=== PATIENT | male | born 1940 | race Caucasian/White ===

== ENCOUNTER 2017-06-17 19:12 | Inpatient (IN) | payer OTHER, BC ==
--- NOTE | 2017-06-17 19:22 | PDOC ---
History of Present Illness <Sofía Galindo - Last Filed: 06/17/17 23:26> <Jaxon Carroll - Last Filed: 06/18/17 02:38> - General Chief Complaint: Chest Pain Stated Complaint: CHEST PAIN Time Seen by Provider: 06/17/17 19:22 - History of Present Illness Initial Comments: 06/17/17 19:47 The patient is a 76 year old male with a significant PMH of colon cancer, diabetes, kidney failure, cardiomegaly, s/p 2 stents placed who presents to the emergency department with multiple episodes of nonbloody, nonbilious vomit this morning and chest pain localized in the sterum, nonradiating this evening. The patient reports he took pepto-bismol today. The patient has a fever of 103 here in the ER. The patient states he took two Tylenol PMs and a benadryl two hours before arrival. The patient denies shortness of breath, headache and dizziness. Denies chills, diarrhea and constipation. Denies dysuria, frequency, urgency and hematuria. Allergies: sulfa Past surgical history: Colectomy Social history: No reported alcohol,d rug or cigarette use. PCP: Dr. Ignacio in [place] (Sofía Galindo) Past History <Sofía Galindo - Last Filed: 06/17/17 23:26> - Suicide/Smoking/Psychosocial Hx Smoking History: Never smoked Have you smoked in the past 12 months: No Information on smoking cessation initiated: No Hx Alcohol Use: No Drug/Substance Use Hx: No <Jaxon Carroll - Last Filed: 06/18/17 02:38> - Past Medical History Allergies/Adverse Reactions: Allergies Allergy/AdvReac Type Severity Reaction Status Date / Time Sulfa (Sulfonamide Allergy Verified 06/17/17 19:20 Antibiotics) Review of Systems - Review of Systems Able to Perform ROS?: Yes <Sofía Galindo - Last Filed: 06/17/17 23:26> <Jaxon Carroll - Last Filed: 06/18/17 02:38> - Review of Systems Comments:: 06/17/17 19:46 CONSTITUTIONAL: (+) Fever. No chills, no fatigue EYES: No visual changes ENT: No ear pain, no sore throat CARDIOVASCULAR: No chest pain, no palpitations RESPIRATORY: No cough, no SOB GI: (+) Vomiting. No abdominal pain, no constipation, no diarrhea GENITOURINARY: No dysuria, no frequency, no hematuria MUSKULOSKELETAL: No backpain, no joint pain, no myalgias SKIN: No rash NEURO: No headache (Sofía Galindo) *Physical Exam <JosieSofía - Last Filed: 06/17/17 23:26> <Jaxon Carroll - Last Filed: 06/18/17 02:38> - Vital Signs Last Vital Signs Temp Pulse Resp BP Pulse Ox 102.4 F H 117 H 18 142/73 95 06/17/17 19:17 06/17/17 19:17 06/17/17 19:17 06/17/17 19:17 06/17/17 19:17 - Physical Exam Comments: 06/17/17 20:16 CONSTITUTIONAL: (+) Lethargic but easily arousable to verbal stimuli. Well nourished; in no apparent distress. HEAD: Normocephalic; atraumatic EYES: (+) No photophobia. PERRL; EOM intact. ENMT: (+) Mucous membranes dry. (+) Tongue is coated. External appears normal; normal oropharynx. NECK: Supple; non-tender; no cervical lymphadenopathy, no bruits CARD: (+) Tachycardic. Normal S1, S2; no murmurs, rubs, or gallops. RESP: Normal chest excursion with respiration; breath sounds clear and equal bilaterally; no wheezes, rhonchi, or rales ABD: (+) Mild RUQ tenderness. Soft, non-distended; no palpable organomegaly, no palpable hernias EXT: (+) 2+ pitting edema of the bilateral LE. Normal ROM in all four extremities; non-tender to palpation; distal pulses intact SKIN: Warm, dry, no rash NEURO: (+) Follows commands, gait deferred, moving all extremities appropriately. No focal neurological deficiencies. = (Sofía Galindo) ED Treatment Course - LABORATORY CBC & Chemistry Diagram: 06/17/17 20:19 06/17/17 20:19 <Una Galindosy - Last Filed: 06/17/17 23:26> - LABORATORY CBC & Chemistry Diagram: 06/17/17 20:19 06/17/17 20:19 <Jaxon Carroll - Last Filed: 06/18/17 02:38> - ADDITIONAL ORDERS Additional order review: Laboratory Results 06/17/17 06/17/17 06/17/17 21:20 20:19 20:19 PT with INR INR PTT (Actin FS) VBG pH POC VBG pCO2 POC VBG pO2 Mixed VBG HCO3 Sodium Potassium Chloride Carbon Dioxide Anion Gap BUN Creatinine Creat Clearance w eGFR Random Glucose Lactic Acid 0.9 Calcium Total Bilirubin AST ALT Alkaline Phosphatase Troponin I 0.05 Total Protein Albumin Lipase Urine Color Ltyellow Urine Appearance Clear Urine pH 5.0 Ur Specific [place] 1.013 Urine Protein 2+ H Urine Glucose (UA) Negative Urine Ketones Trace H Urine Blood 1+ H Urine Nitrite Negative Urine Bilirubin Negative Urine Urobilinogen Negative Ur Leukocyte Esterase Negative Urine WBC (Auto) 4 Urine RBC (Auto) 4 Urine Bacteria Rare Urine Mucus Rare 06/17/17 06/17/17 06/17/17 20:19 20:19 20:01 PT with INR 12.40 H INR 1.10 PTT (Actin FS) 32.9 VBG pH 7.34 POC VBG pCO2 34.2 L POC VBG pO2 134.0 H Mixed VBG HCO3 18.0 L Sodium 151 H Potassium 3.5 Chloride 119 H Carbon Dioxide 23 Anion Gap 9 BUN 50 H Creatinine 3.0 H Creat Clearance w eGFR 20.45 Random Glucose 181 H Lactic Acid Calcium 10.0 Total Bilirubin 0.7 AST 19 ALT 20 Alkaline Phosphatase 67 Troponin I Total Protein 7.4 Albumin 3.7 Lipase Urine Color Urine Appearance Urine pH Ur Specific [place] Urine Protein Urine Glucose (UA) Urine Ketones Urine Blood Urine Nitrite Urine Bilirubin Urine Urobilinogen Ur Leukocyte Esterase Urine WBC (Auto) Urine RBC (Auto) Urine Bacteria Urine Mucus 06/17/17 19:43 PT with INR INR PTT (Actin FS) VBG pH POC VBG pCO2 POC VBG pO2 Mixed VBG HCO3 Sodium Potassium Chloride Carbon Dioxide Anion Gap BUN Creatinine Creat Clearance w eGFR Random Glucose Lactic Acid Calcium Total Bilirubin AST ALT Alkaline Phosphatase Troponin I Total Protein Albumin Lipase 179 Urine Color Urine Appearance Urine pH Ur Specific [place] Urine Protein Urine Glucose (UA) Urine Ketones Urine Blood Urine Nitrite Urine Bilirubin Urine Urobilinogen Ur Leukocyte Esterase Urine WBC (Auto) Urine RBC (Auto) Urine Bacteria Urine Mucus 06/17/17 21:09 Influenza Types A,B Antigen (JODIE) - Final Nasopharyngeal Swab - Final 06/17/17 20:19 RBC 4.45 MCV 86.5 MCHC 33.2 RDW 15.3 MPV 9.7 Neutrophils % 90.9 H Lymphocytes % 2.8 L Monocytes % 5.7 Eosinophils % 0.4 Basophils % 0.2 - RADIOLOGY Radiology Studies Ordered: Category Date Time Status ABDOMEN & PELVIS CT W/O CONTR [CT] Stat CT Scan 06/18/17 01:31 Taken CHEST X-RAY PORTABLE* [RAD] Stat Radiology 06/17/17 19:43 Taken CHEST X-RAY PORTABLE* [RAD] Stat Radiology 06/17/17 20:43 Taken ABDOMEN US -LIMITED [US] Stat Ultrasound 06/17/17 21:16 Taken - Medications Given in the ED: ED Medications Discontinued Medications Generic Name Dose Route Start Last Admin Trade Name Freq PRN Reason Stop Dose Admin Acetaminophen 1,000 mg 06/17/17 19:43 06/17/17 20:25 Ofirmev Injection - IVPB 06/17/17 19:44 1,000 mg ONCE ONE Administration Sodium Chloride 500 mls @ 500 mls/hr 06/17/17 21:02 06/17/17 21:05 Normal Saline - IV 06/17/17 22:01 500 mls/hr ASDIR STA Administration Sodium Chloride 500 mls @ 500 mls/hr 06/17/17 23:01 06/17/17 23:16 Normal Saline - IV 06/18/17 00:00 500 mls/hr ASDIR STA Administration Ceftriaxone Sodium 1 gm/ 50 mls @ 100 mls/hr 06/17/17 23:46 06/18/17 02:26 Dextrose IVPB 06/18/17 00:15 100 mls/hr ONCE ONE Administration Sodium Chloride 500 ml 06/17/17 19:42 06/17/17 20:25 Normal Saline - IV 06/17/17 19:43 500 ml ONCE STA Administration Medical Decision Making <Sofía Galindo - Last Filed: 06/17/17 23:26> <Jaxon Carroll - Last Filed: 06/18/17 02:38> - Medical Decision Making 06/17/17 23:33 Patient is a 76-year-old male with multiple comorbidities who presents to the ER with lethargy, fever, upper abdominal pain, after experiencing several episodes of nonbloody, nonbilious vomiting and loose watery stools. On initial evaluation, patient is noted to be febrile, tachycardic, lethargic without evidence of meningeal signs, with mild right upper quadrant, left lower quadrant and periumbilical tenderness to deep palpation without guarding or rebound. Patient's EKG revealed sinus tachycardia with Q waves inferiorly and within the precordium, without evidence of acute ischemia. Chest x-ray reveals cardiomegaly with a questionable left lower lobe infiltrate. CBC reveals no evidence of leukocytosis, neutrophilia is noted. CMP reveals moderate hypernatremia, as well as elevated BUN/creatinine consistent with patient's history of chronic renal insufficiency. Urinalysis reveals no evidence of pyuria. Blood and urine cultures are been obtained. Patient is noted to be influenza negative. Right upper quadrant ultrasound shows no evidence of hepatobiliary disease, renal cysts are noted. Will obtain CT of abdomen and pelvis with by mouth contrast to evaluate for possible colitis. Will continue to judiciously hydrate. Likely admission. 06/18/17 02:25 pt with no evidence of acute pathology onct abd-pelvis. lll infiltrate noted. ceftriaxone and zithromax administered. will admit. (Jaxon Carroll) *DC/Admit/Observation/Transfer <Sofía Galindo - Last Filed: 06/17/17 23:26> - Discharge Dispostion Admit: Yes <Jaxon Carroll - Last Filed: 06/18/17 02:38> Diagnosis at time of Disposition: Hypernatremia, Chronic renal insufficiency, stage IV (severe) Pneumonia Qualifiers: Pneumonia type: due to unspecified organism Laterality: left Lung location: lower lobe of lung Qualified Code(s): J18.1 - Lobar pneumonia, unspecified organism - Discharge Dispostion Condition at time of disposition: Fair Decision to Admit order Date/Time: Decision to Admit Order Category Date Time Status Decision to Admit to Hospital Routine Admission 06/18/17 02:27 Active - Attestations Scribe Attestion: 06/17/17 19:46 Documentation prepared by Sofía Galindo, acting as medical center director for Jaxon Carroll MD. (Sofía Galindo) Physician Attestion: 06/17/17 23:32 The documentation was prepared by the scribe under my direct supervision. I have reviewed the documentation which correctly represents the findings, medical decision-making and critical action taken by me. (Jaxon Carroll)
[2017-06-17] MEDS ORDERED: SODIUM CHLORIDE 0.9% 1000 ML INFUS.BAG IV STA (19:42)
[2017-06-17] MEDS ORDERED: ACETAMINOPHEN 1000 MG/100 ML VIAL (NON FORMULARY) IVPB ONE (19:43)
[2017-06-17] MEDS ORDERED: ACETAMINOPHEN INJECTION 100 ML IVPB ONE (19:49)
[2017-06-17 20:23] LABS: VENOUS PC02 34.2 mmHg (38-52); VENOUS PH 7.34 (7.32-7.42)
[2017-06-17 20:26] LABS: BASO % 0.2 % (0-2.0); EOS % 0.4 % (0-4.5); HEMATOCRIT 38.5 % (35.4-49); HEMOGLOBIN 12.8 GM/dL (11.7-16.9); LYMPH % 2.8 % (8-40); MCH 28.8 pg (25.7-33.7); MCHC 33.2 g/dl (32.0-35.9); MEAN CELL VOLUME 86.5 fl (80-96); MEAN PLT VOLUME 9.7 fl (7.5-11.1); MONO % 5.7 % (3.8-10.2); NEUT % 90.9 % (42.8-82.8); PLATELET COUNT 157 K/MM3 (134-434); RBC 4.45 M/mm3 (4.00-5.60); RDW 15.3 % (11.9-15.9); WHITE BLOOD COUNT 4.1 K/mm3 (4.0-10.0)
[2017-06-17 20:39] LABS: INR 1.1 (0.82-1.09); PROTHROMBIN TIME (PATIENT) 12.4 SEC (9.98-11.88)
[2017-06-17 20:42] LABS: ACTIVATED PTT 32.9 SECONDS (26.9-34.4)
[2017-06-17 20:59] LABS: ALBUMIN 3.7 g/dl (3.4-5.0); ALK PHOS 67 U/L (45-117); ANION GAP 9 (8-16); BILIRUBIN,TOTAL 0.7 mg/dL (0.2-1.0); BLOOD UREA NITROGEN 50 mg/dL (7-18); CHLORIDE 119 mmol/L (98-107); CO2 23 mmol/L (21-32); GLUCOSE,RANDOM 181 mg/dL (74-106); POTASSIUM 3.5 mmol/L (3.5-5.1); SGOT/AST 19 U/L (15-37); SGPT/ALT 20 U/L (12-78); SODIUM 151 mmol/L (136-145); TOT PROT 7.4 g/dl (6.4-8.2)
[2017-06-17] MEDS ORDERED: SODIUM CHLORIDE 500 ML IV STA ×2 (21:02→23:01)
[2017-06-17 21:31] LABS: URINE APPEARANCE CLEAR; URINE BILIRUBIN NEGATIVE (NEGATIVE); URINE BLOOD 1+ (NEGATIVE); URINE COLOR LTYELLOW; URINE GLUCOSE (UA) NEGATIVE (NEGATIVE); URINE KETONE TRACE (NEGATIVE); URINE LEUK ESTERASE NEGATIVE (NEGATIVE); URINE NITRITE NEGATIVE (NEGATIVE); URINE UROBILINOGEN NEGATIVE mg/dL (0.2-1.0)
[2017-06-17 21:41] LABS: URINE PROTEIN 2+ (NEGATIVE)
[2017-06-17 21:42] LABS: URINE BACTERIA RARE /hpf (NONE SEEN); URINE MUCUS RARE
[2017-06-17] MEDS ORDERED: CEFTRIAXONE 1 GM in DEXTROSE 5%-WATER - 50 ML IVPB ONE (23:46)
[2017-06-18] MEDS ORDERED: AZITHROMYCIN IVPB 500 MG in DEXTROSE 5%-WATER - 250 ML IVPB ONE (02:00)
[2017-06-18] MEDS ORDERED: AZITHROMYCIN IVPB 250 ML IVPB ONE (02:10)
[2017-06-18] MEDS ORDERED: CEFTRIAXONE 1 GM/50 ML BAG ONE (02:11)
[2017-06-18] MEDS ORDERED: SODIUM CHLORIDE 250 ML IV STA (02:27)
--- NOTE | 2017-06-18 03:05 | PN ---
Teaching Attending Note Name of Resident: Ning Burrows ATTENDING PHYSICIAN STATEMENT I saw and evaluated the patient. I reviewed the resident's note and discussed the case with the resident. I agree with the resident's findings and plan as documented. SUBJECTIVE: 76 y/o male with hx of HTN, DL, CAD s/p 2 stents, CVA x.2 CKD stage V, IDDM, colorectal cancer s/p chemo/radio therapy, Obstructive sleep apnea on CPAP, and HFrEF presented to the hospital for altered mental status that started yesterday , according to the there are here fora but then the patient stated to feel malaise and febrile 2 days ago and became altered. ROS is limited due to the patient's mental status OBJECTIVE: somnolent but arousal S1 and S2 RRR +3 pitting edema bilaterally abdomen soft non-tender tongue dark - (ate blue berries ) lungs decreased air entry to the left with ronchi ASSESSMENT AND PLAN: 76 y/o male with multiple co-morbidities Pneumonia severity index of 211 presented to the hospital for AMS found to have left lower lobe pneumonia - patient is being admitted for SIRS with sepsis 2/2 pneumonia Plan: SIRS with sepsis 2/2 pneumonia: patient has HFrEF he is hemodynamically stable Pneumonia: please obtain ID consultation - for proper antibiotic therapy - patient is CHF and requires an IV antibiotics with the least amount of NaCl to prevent the acute decompensation HF patient received 1 dose of ceftriaxone and 1 dose azithromycin will start the patient on Levofloxacin 750mg daily IVPB avoid using CPAP to prevent mucous plugs consult pulmonary consider CCM flu r/o HFrEF: obtain an echocardiogram cardiology consult hold the BP medication for this time due to sepsis CKD stage IV - 2/2 htyn and DM nephrology consult IDDM: insulin sliding scale CLINTON - avoid cpap due to pneomonia pulmonary consult
[2017-06-18] MEDS ORDERED: ACETAMINOPHEN 325 MG TABLET (FP) PO PRN (03:34)
--- NOTE | 2017-06-18 04:01 | HP ---
CHIEF COMPLAINT: SOB, AMS PCP: PCP in [place], Dr Lion HISTORY OF PRESENT ILLNESS: The pt is a 76 year old male with a PMH of colon cancer, HDL, HTN, CAD, s/p 2 stents,CKD stage 4, CL[place] on BiPap at night, CVA x 2 who presented to the hospital with AMS and increased SOB for the pas 2 days. The pt is lethargic and history was taken partially from him and his that was present at bedside. They are visiting from [place] for . She noticed that for the past 2 days he is more lethargic, started complaining of SOB and weakness. Yesterday he had several non bloody, non bilious episodes of vomiting. He was found to have fever of 102 in ED. He had chills at home and took Tylenol PM and Benadryl before coming to the hospital.The pt states that over past several weeks he was more SOB and had occasional chest pains. 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 He denies abdominal pain, palpitation, N/V, diarrhea, vomiting, cough. ER course was notable for: (1)NS (2)AZT, Ceftriaxone (3)CT abdomen, pelvis Recent Travel: yes, [place] PAST MEDICAL HISTORY: as above PAST SURGICAL HISTORY: colon cancer resection, back surgery, stents Social History: Smoking:former smoker, quit "years ago" Alcohol:no Drugs: no Family History: father and mother: DM, heart disease Allergies Sulfa (Sulfonamide Antibiotics) Allergy (Verified 06/17/17 19:20) HOME MEDICATIONS: Home Medications Medication Instructions Recorded Allopurinol [Zyloprim -] 100 mg PO DAILY 06/18/17 Aspirin [ASA -] 81 mg PO DAILY 06/18/17 Bumetanide 1 mg PO Q2D 06/18/17 Cholecalciferol (Vitamin D3) 400 unit PO DAILY 06/18/17 [Vitamin D3 -] Clopidogrel Bisulfate [Plavix] 75 mg PO HS 06/18/17 Cyanocobalamin (Vitamin B-12) 1,000 mcg PO DAILY 06/18/17 [Vitamin B-12] Hydralazine HCl 80 mg PO BID 06/18/17 Insulin Aspart [Novolog] 100 unit SQ AC 06/18/17 Insulin Detemir [Levemir Flextouch] 30 unit SQ HS 06/18/17 Isosorbide Mononitrate [Imdur -] 60 mg PO DAILY 06/18/17 Labetalol HCl 300 mg PO BID 06/18/17 Metolazone 2.5 mg PO DAILY 06/18/17 Minoxidil 5 mg PO BID 06/18/17 Rosuvastatin Calcium [Crestor] 20 mg PO DAILY 06/18/17 Ubidecarenone [Coq-10] 30 mg PO HS 06/18/17 REVIEW OF SYSTEMS CONSTITUTIONAL: Absent: fever, chills, diaphoresis, generalized weakness, malaise, loss of appetite, weight change HEENT: Absent: rhinorrhea, nasal congestion, throat pain, throat swelling, difficulty swallowing, mouth swelling, ear pain, eye pain, visual changes CARDIOVASCULAR: Absent: chest pain, syncope, palpitations, irregular heart rate, lightheadedness , peripheral edema RESPIRATORY: Absent: cough, shortness of breath, dyspnea with exertion, orthopnea, wheezing, stridor, hemoptysis GASTROINTESTINAL: Absent: abdominal pain, abdominal distension, nausea, vomiting, diarrhea, constipation, melena, hematochezia GENITOURINARY: Absent: dysuria, frequency, urgency, hesitancy, hematuria, flank pain, genital pain MUSCULOSKELETAL: Absent: myalgia, arthralgia, joint swelling, back pain, neck pain SKIN: Absent: rash, itching, pallor HEMATOLOGIC/IMMUNOLOGIC: Absent: easy bleeding, easy bruising, lymphadenopathy, frequent infections ENDOCRINE: Absent: unexplained weight gain, unexplained weight loss, heat intolerance, cold intolerance NEUROLOGIC: Absent: headache, focal weakness or paresthesias, dizziness, unsteady gait, seizure, mental status changes, bladder or bowel incontinence PSYCHIATRIC: Absent: anxiety, depression, suicidal or homicidal ideation, hallucinations. PHYSICAL EXAMINATION Vital Signs - 24 hr 06/17/17 06/18/17 06/18/17 19:17 00:00 03:10 Temperature 102.4 F H 98.4 F 98.4 F Pulse Rate 117 H Pulse Rate [ 98 H Apical] Respiratory 18 16 Rate Blood Pressure 142/73 Blood Pressure 156/72 [Right Arm] O2 Sat by Pulse 95 98 Oximetry (%) GENERAL: Awake, alert, and fully oriented, in no acute distress. HEAD: Normal with no signs of trauma. EYES: Pupils equal, round and reactive to light, extraocular movements intact, sclera anicteric, conjunctiva clear. No lid lag. EARS, NOSE, THROAT: Ears normal, nares patent, oropharynx clear without exudates. Moist mucous membranes. NECK: Normal range of motion, supple without lymphadenopathy, JVD, or masses. LUNGS: Breath sounds equal, clear to auscultation bilaterally. No wheezes, and no crackles. No accessory muscle use. HEART: Regular rate and rhythm, normal S1 and S2 without murmur, rub or gallop. ABDOMEN: Soft, nontender, not distended, normoactive bowel sounds, no guarding, no rebound, no masses. No hepatomegaly or splenomegaly. MUSCULOSKELETAL: Normal range of motion at all joints. No bony deformities or tenderness. No CVA tenderness. UPPER EXTREMITIES: 2+ pulses, warm, well-perfused. No cyanosis. No clubbing. No peripheral edema. LOWER EXTREMITIES: 2+ pulses, warm, well-perfused. No calf tenderness. No peripheral edema. NEUROLOGICAL: Cranial nerves II-XII intact. Normal speech. Normal gait. PSYCHIATRIC: Cooperative. Good eye contact. Appropriate mood and affect. SKIN: Warm, dry, normal turgor, no rashes or lesions noted, normal capillary refill. Laboratory Results - last 24 hr 06/17/17 06/17/17 06/17/17 19:43 20:01 20:19 WBC 4.1 RBC 4.45 Hgb 12.8 Hct 38.5 MCV 86.5 MCH 28.8 MCHC 33.2 RDW 15.3 Plt Count 157 MPV 9.7 Neutrophils % 90.9 H Lymphocytes % 2.8 L Monocytes % 5.7 Eosinophils % 0.4 Basophils % 0.2 PT with INR INR PTT (Actin FS) VBG pH 7.34 POC VBG pCO2 34.2 L POC VBG pO2 134.0 H Mixed VBG HCO3 18.0 L Sodium Potassium Chloride Carbon Dioxide Anion Gap BUN Creatinine Creat Clearance w eGFR Random Glucose Lactic Acid Calcium Total Bilirubin AST ALT Alkaline Phosphatase Troponin I Total Protein Albumin Lipase 179 Urine Color Urine Appearance Urine pH Ur Specific [place] Urine Protein Urine Glucose (UA) Urine Ketones Urine Blood Urine Nitrite Urine Bilirubin Urine Urobilinogen Ur Leukocyte Esterase Urine WBC (Auto) Urine RBC (Auto) Urine Bacteria Urine Mucus 06/17/17 06/17/17 06/17/17 20:19 20:19 20:19 WBC RBC Hgb Hct MCV MCH MCHC RDW Plt Count MPV Neutrophils % Lymphocytes % Monocytes % Eosinophils % Basophils % PT with INR 12.40 H INR 1.10 PTT (Actin FS) 32.9 VBG pH POC VBG pCO2 POC VBG pO2 Mixed VBG HCO3 Sodium 151 H Potassium 3.5 Chloride 119 H Carbon Dioxide 23 Anion Gap 9 BUN 50 H Creatinine 3.0 H Creat Clearance w eGFR 20.45 Random Glucose 181 H Lactic Acid 0.9 Calcium 10.0 Total Bilirubin 0.7 AST 19 ALT 20 Alkaline Phosphatase 67 Troponin I Total Protein 7.4 Albumin 3.7 Lipase Urine Color Urine Appearance Urine pH Ur Specific [place] Urine Protein Urine Glucose (UA) Urine Ketones Urine Blood Urine Nitrite Urine Bilirubin Urine Urobilinogen Ur Leukocyte Esterase Urine WBC (Auto) Urine RBC (Auto) Urine Bacteria Urine Mucus 06/17/17 06/17/17 20:19 21:20 WBC RBC Hgb Hct MCV MCH MCHC RDW Plt Count MPV Neutrophils % Lymphocytes % Monocytes % Eosinophils % Basophils % PT with INR INR PTT (Actin FS) VBG pH POC VBG pCO2 POC VBG pO2 Mixed VBG HCO3 Sodium Potassium Chloride Carbon Dioxide Anion Gap BUN Creatinine Creat Clearance w eGFR Random Glucose Lactic Acid Calcium Total Bilirubin AST ALT Alkaline Phosphatase Troponin I 0.05 Total Protein Albumin Lipase Urine Color Ltyellow Urine Appearance Clear Urine pH 5.0 Ur Specific [place] 1.013 Urine Protein 2+ H Urine Glucose (UA) Negative Urine Ketones Trace H Urine Blood 1+ H Urine Nitrite Negative Urine Bilirubin Negative Urine Urobilinogen Negative Ur Leukocyte Esterase Negative Urine WBC (Auto) 4 Urine RBC (Auto) 4 Urine Bacteria Rare Urine Mucus Rare ASSESSMENT/PLAN: The pt is a 76 year old male with a PMH of colon cancer, CAD, s/p 2 stents,CKD stage 4, [place] on BiPap at night, CVA x 2 who presented to the hospital with AMS and increased SOB for the pas 2 days. He is admitted to med surg for sepsis due to pneumonia. Sepsis due to pneumonia: -Left lower lobe infiltrate, PSI/PORT score: class 5, CURB 65 score 2 -given AZT and Ceftriaxone. Will continue with Levaquin renally dosed -no fluids due to CHF -ID consultation paced for low sodium antibiotics options -no CPAP to prevent mucus plugs -urine and blood cultures ordered, flu swab negative Heart failure with preserved EF: -cardiology consultation -hold BP home meds due to sepsis -no fluids -ECHO ordered -BNP ordered DMII: -due to HTN, diabetes -will continue with ISS -BGM ACHS CKD stage 4: -will f/u nephrology consultation -avoid nephrotoxic substances -Cr 3.0, no baseline [place]: -will f/u Pulm recommendations Hypernatremia: -low Na diet, no fluids for now F/E/N: no/no changes/low Na DVT PPX: heparin sq, Disposition: med surg Problem List - Problem (1) History of colon cancer Code(s): Z85.038 - PERSONAL HISTORY OF MALIGNANT NEOPLASM OF LARGE INTESTINE (2) Chronic renal insufficiency, stage IV (severe) Code(s): N18.4 - CHRONIC KIDNEY DISEASE, STAGE 4 (SEVERE) (3) Hypernatremia Code(s): E87.0 - HYPEROSMOLALITY AND HYPERNATREMIA (4) Pneumonia Code(s): J18.9 - PNEUMONIA, UNSPECIFIED ORGANISM Qualifiers: Pneumonia type: due to unspecified organism Laterality: left Lung location: lower lobe of lung Qualified Code(s): J18.1 - Lobar pneumonia, unspecified organism Visit type - Emergency Visit Emergency Visit: Yes ED Registration Date: 06/18/17 Care time: The patient presented to the Emergency Department on the above date and was hospitalized for further evaluation of their emergent condition. - New Patient This patient is new to me today: Yes Date on this admission: 06/18/17 - Critical Care Critical Care patient: No Hospitalist Screening - Colonoscopy Questionnaire Colonoscopy Questionnaire: Colonoscopy Questionnaire - Patient: 50 - 75 years old and never had a screening colonoscopy: No History of colon or rectal polyps, or CA: No History of IBD, Crohn's disease or UC: No History of abdominal radiation therapy as a child: No - Relative: 1 with colon or rectal CA, or polyps at age 60 or younger: No Colon or rectal CA diagnosed at age 45 or younger: No Multiple relatives with colon or rectal CA: No - Outcome: Screening Result: Negative Screen
[2017-06-18 04:46] VITALS: BMI 33.0
[2017-06-18] MEDS: INSULIN SLIDING SCALE (NOVOLOG) 1 VIAL SQ SCH ×4 (06:17→22:22)
[2017-06-18] MEDS: HEPARIN NA (PORCINE) 5,000 UNITS/ML 1ML VIAL SQ SCH ×3 (06:17→22:21)
[2017-06-18 07:43] LABS: BASO % 0.4 % (0-2.0); EOS % 0.2 % (0-4.5); HEMATOCRIT 36.3 % (35.4-49); HEMOGLOBIN 11.8 GM/dL (11.7-16.9); LYMPH % 7.9 % (8-40); MCH 28.7 pg (25.7-33.7); MCHC 32.7 g/dl (32.0-35.9); MEAN CELL VOLUME 87.8 fl (80-96); MEAN PLT VOLUME 10.1 fl (7.5-11.1); MONO % 8.3 % (3.8-10.2); NEUT % 83.2 % (42.8-82.8); PLATELET COUNT 145 K/MM3 (134-434); RBC 4.13 M/mm3 (4.00-5.60); RDW 15.3 % (11.9-15.9); WHITE BLOOD COUNT 4.7 K/mm3 (4.0-10.0)
[2017-06-18 08:19] LABS: ALBUMIN 3.3 g/dl (3.4-5.0); CALCIUM 8.7 mg/dL (8.5-10.1); CHLORIDE 118 mmol/L (98-107); SODIUM 148 mmol/L (136-145)
[2017-06-18 08:23] LABS: ALK PHOS 58 U/L (45-117); ANION GAP 6 (8-16); BILIRUBIN,TOTAL 0.7 mg/dL (0.2-1.0); BLOOD UREA NITROGEN 50 mg/dL (7-18); CHOLESTEROL 103 mg/dL (50-200); CO2 24 mmol/L (21-32); CREATININE 2.7 mg/dL (0.7-1.3); GLUCOSE,RANDOM 156 mg/dL (74-106); HDL CHOLESTEROL 34 mg/dL (40-60); LDL CHOLESTEROL (ONLY SJRH) 52 mg/dL (5-100); N-TERMINAL BNP 3675.83 pg/ml (5-450); PHOSPHOROUS 2.6 mg/dL (2.5-4.9); SGPT/ALT 19 U/L (12-78); TOT PROT 6.5 g/dl (6.4-8.2); TRIGLYCERIDES 148 mg/dL (35-160)
[2017-06-18 08:24] LABS: POTASSIUM 3.9 mmol/L (3.5-5.1)
[2017-06-18 08:25] LABS: MAGNESIUM 1.9 mg/dL (1.8-2.4); SGOT/AST 31 U/L (15-37)
--- NOTE | 2017-06-18 09:32 | PN ---
Progress Note (short form) - Note Progress Note: ID 76 year old man presents with fever and abrupt onset of diarrhea and several episodes vomiting no abd pain Microbiology 06/17/17 21:09 Nasopharyngeal Swab Influenza Types A,B Antigen (JODIE) - Final 06/17/17 21:09 Nasopharyngeal Swab - Final Selected Entries 06/17/17 06/18/17 19:17 05:05 Temperature 102.4 F H 98.9 F Pulse Rate 117 H 94 H Respiratory 18 18 Rate Blood Pressure 142/73 148/76 Laboratory Tests 06/17/17 06/18/17 06/18/17 20:19 06:45 06:45 WBC 4.7 RBC 4.13 Plt Count 145 BUN 50 H Creatinine 2.7 H Creat Clearance w eGFR 23.09 Lactic Acid 0.9 Total Bilirubin 0.7 AST 31 D Assessment Acute gastroenteritis with acute and chronic kidney disease ? enteric salmonella shig NORO [place] Plan Stool cultures NORO PCR Levaflox 250mg q 48 IVF Renal consult Problem List - Problems (1) Acute gastroenteritis Code(s): K52.9 - NONINFECTIVE GASTROENTERITIS AND COLITIS, UNSPECIFIED
[2017-06-18] MEDS ORDERED: SODIUM CHLORIDE 0.45% 1,000 ML IV SCH (09:45)
--- NOTE | 2017-06-18 09:54 | CONSULT ---
Consult - text type - Consultation Consultation Note: Renal Consult for CKD/Azotemia/Hypernatremia This is a 76 year old gentleman with PMhx of CKD stage 4 (he reports secondary to hypertension), Renal Cysts, DM, Colon Ca, IDDM who presented with complaints of N/V w/o diarrehea with fever and found to have BUN/Cr of 50/2.7. Pt reports that his baseline Cr is ~2.6. Denies any NSAID use, contrast exposure or recent Abx use. No confusion or lethargy reported. Denies any SOB. No flank pain. No hx of stones. Had N/V x 1 day (multiple times). CT of the Abd showed promiance of unilateral renal pelvis with suspected obstruction at UPJ. S/p IVF and Abx in the ED. + Diuretic use at home. PMhx: As above Allergies: Sulfa Family Hx: NC Social Hx: No T/A/D ROs: as per HPI, all other pertinent ros negative Home Medications Medication Instructions Recorded Allopurinol [Zyloprim -] 100 mg PO DAILY 06/18/17 Aspirin [ASA -] 81 mg PO DAILY 06/18/17 Bumetanide 1 mg PO Q2D 06/18/17 Cholecalciferol (Vitamin D3) 400 unit PO DAILY 06/18/17 [Vitamin D3 -] Clopidogrel Bisulfate [Plavix] 75 mg PO HS 06/18/17 Cyanocobalamin (Vitamin B-12) 1,000 mcg PO DAILY 06/18/17 [Vitamin B-12] Hydralazine HCl 80 mg PO BID 06/18/17 Insulin Aspart [Novolog] 100 unit SQ AC 06/18/17 Insulin Detemir [Levemir Flextouch] 30 unit SQ HS 06/18/17 Isosorbide Mononitrate [Imdur -] 60 mg PO DAILY 06/18/17 Labetalol HCl 300 mg PO BID 06/18/17 Metolazone 2.5 mg PO DAILY 06/18/17 Minoxidil 5 mg PO BID 06/18/17 Rosuvastatin Calcium [Crestor] 20 mg PO DAILY 06/18/17 Ubidecarenone [Coq-10] 30 mg PO HS 06/18/17 Vital Signs Temperature 98.9 F 06/18/17 05:05 Pulse Rate 94 H 06/18/17 05:05 Respiratory Rate 18 03/18/18 05:05 Blood Pressure 148/76 06/18/17 05:05 O2 Sat by Pulse Oximetry (%) 98 06/18/17 03:10 Intake & Output 06/15/17 06/16/17 06/17/17 06/18/17 23:59 23:59 23:59 23:59 Weight 107.048 kg 102.965 kg NAD on NC O2 Dry MM, No JVD, Neck supple RRR, no M/R CTA, no rales or wheeze soft, mild distension, obese, non-tender Abd NO Le edema no bladder distension NO focal neurological defects CBC, BMP 06/18/17 06:45 06/18/17 06:45 Laboratory Tests 06/18/17 06/18/17 06:45 06:45 Hemoglobin A1c % 7.5 H Calcium 8.7 Phosphorus 2.6 Magnesium 1.9 Current Medications Acetaminophen (Tylenol -) 650 mg PO Q6H PRN PRN Reason: FEVER Heparin Sodium (Porcine) (Heparin -) 5,000 unit SQ TID [facility] Last Admin: 06/18/17 06:17 Dose: 5,000 unit Levofloxacin (Levaquin 500 Mg Premixed Ivpb -) 500 mg in 100 mls @ 100 mls/hr IVPB ONCE ONE Stop: 06/18/17 10:59 Levofloxacin (Levaquin 250 Mg Premixed Ivpb -) 250 mg in 50 mls @ 50 mls/hr IVPB DAILY [facility] Sodium Chloride (1/2 Normal Saline) 1,000 mls @ 75 mls/hr IV ASDIR [facility] Stop: 06/19/17 09:44 Insulin Aspart (Novolog Vial Sliding Scale -) 1 vial SQ ACHS VIVI PRN Reason: Protocol Last Admin: 06/18/17 06:17 Dose: 2 units 76 year old gentleman with PMhx of CKD stage 4 (he reports secondary to hypertension), Renal Cysts, DM, Colon Ca, IDDM who presented with complaints of N/V w/o diarrehea with fever and found to have BUN/Cr of 50/2.7. 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
--- NOTE | 2017-06-18 10:32 | PN ---
Teaching Attending Note Name of Resident: Robbin Cantu SUBJECTIVE: patient seen and examined, states had nausea, with vomiting and diarrhea with fevers yesterday, that brought him to the ED. Denies any chest pain, palpitations, dyspnea, cough, abdominal or urinary symptoms currently. OBJECTIVE: Vital Signs Period Temp Pulse Resp BP Sys/[place] Pulse Ox Last 24 Hr 98.4 F-102.4 F 94-117 16-18 142-156/72-79 95-98 Intake & Output 06/15/17 06/16/17 06/17/17 06/18/17 23:59 23:59 23:59 23:59 Weight 236 lb 227 lb general: sitting in bed in no acute distress Neck:soft, supple, no JVD visualized Abdomen:Soft, obese, NT, positive bowel sounds extremities: no edema Chest: left basilar rales, good air entry bilaterally Home Medication List Medication Instructions Recorded Confirmed Type Allopurinol [Zyloprim -] 100 mg PO DAILY 06/18/17 06/18/17 History Aspirin [ASA -] 81 mg PO DAILY 06/18/17 06/18/17 History Bumetanide 1 mg PO Q2D 06/18/17 06/18/17 History Cholecalciferol (Vitamin D3) 400 unit PO DAILY 06/18/17 06/18/17 History [Vitamin D3 -] Clopidogrel Bisulfate [Plavix] 75 mg PO HS 06/18/17 06/18/17 History Cyanocobalamin (Vitamin B-12) 1,000 mcg PO DAILY 06/18/17 06/18/17 History [Vitamin B-12] Hydralazine HCl 80 mg PO BID 06/18/17 06/18/17 History Insulin Aspart [Novolog] 100 unit SQ AC 06/18/17 06/18/17 History Insulin Detemir [Levemir Flextouch] 30 unit SQ HS 06/18/17 06/18/17 History Isosorbide Mononitrate [Imdur -] 60 mg PO DAILY 06/18/17 06/18/17 History Labetalol HCl 300 mg PO BID 06/18/17 06/18/17 History Metolazone 2.5 mg PO DAILY 06/18/17 06/18/17 History Minoxidil 5 mg PO BID 06/18/17 06/18/17 History Rosuvastatin Calcium [Crestor] 20 mg PO DAILY 06/18/17 06/18/17 History Ubidecarenone [Coq-10] 30 mg PO HS 06/18/17 06/18/17 History Active Medications Generic Name Dose Route Start Last Admin Trade Name Freq PRN Reason Stop Dose Admin Acetaminophen 650 mg 06/18/17 03:34 Tylenol - PO Q6H PRN FEVER Aspirin 81 mg 06/18/17 10:30 Asa - PO DAILY [facility] Cholecalciferol 400 unit 06/19/17 10:00 Vitamin D3 - PO DAILY [facility] Clopidogrel Bisulfate 75 mg 06/18/17 10:30 Plavix - PO DAILY [facility] Cyanocobalamin 1,000 mcg 06/19/17 10:00 Vitamin B12 - PO DAILY [facility] Heparin Sodium (Porcine) 5,000 unit 06/18/17 06:00 06/18/17 06:17 Heparin - SQ 5,000 unit TID VIVI Administration Levofloxacin 500 mg in 100 mls @ 100 mls/hr 06/18/17 10:00 Levaquin 500 Mg Premixed Ivpb - IVPB 06/18/17 10:59 ONCE ONE Levofloxacin 250 mg in 50 mls @ 50 mls/hr 06/19/17 10:00 Levaquin 250 Mg Premixed Ivpb - IVPB DAILY [facility] Sodium Chloride 1,000 mls @ 75 mls/hr 06/18/17 09:45 1/2 Normal Saline IV 06/19/17 09:44 ASDIR [facility] Insulin Aspart 1 vial 06/18/17 07:00 06/18/17 06:17 Novolog Vial Sliding Scale - SQ 2 units ACHS [facility] Administration Protocol Isosorbide Mononitrate 60 mg 06/18/17 10:30 Imdur - PO DAILY [facility] Labetalol HCl 300 mg 06/18/17 10:30 Normodyne - PO BID [facility] Rosuvastatin Calcium 20 mg 06/18/17 10:30 Crestor - PO DAILY [facility] Laboratory Results - last 24 hr 06/17/17 06/17/17 06/17/17 19:43 20:01 20:19 WBC 4.1 RBC 4.45 Hgb 12.8 Hct 38.5 MCV 86.5 MCH 28.8 MCHC 33.2 RDW 15.3 Plt Count 157 MPV 9.7 Neutrophils % 90.9 H Lymphocytes % 2.8 L Monocytes % 5.7 Eosinophils % 0.4 Basophils % 0.2 PT with INR INR PTT (Actin FS) VBG pH 7.34 POC VBG pCO2 34.2 L POC VBG pO2 134.0 H Mixed VBG HCO3 18.0 L Sodium Potassium Chloride Carbon Dioxide Anion Gap BUN Creatinine Creat Clearance w eGFR POC Glucometer Random Glucose Hemoglobin A1c % Lactic Acid Calcium Phosphorus Magnesium Total Bilirubin AST ALT Alkaline Phosphatase Troponin I B-Natriuretic Peptide Total Protein Albumin Triglycerides Cholesterol Total LDL Cholesterol HDL Cholesterol Lipase 179 Urine Color Urine Appearance Urine pH Ur Specific [place] Urine Protein Urine Glucose (UA) Urine Ketones Urine Blood Urine Nitrite Urine Bilirubin Urine Urobilinogen Ur Leukocyte Esterase Urine WBC (Auto) Urine RBC (Auto) Urine Bacteria Urine Mucus 06/17/17 06/17/17 06/17/17 20:19 20:19 20:19 WBC RBC Hgb Hct MCV MCH MCHC RDW Plt Count MPV Neutrophils % Lymphocytes % Monocytes % Eosinophils % Basophils % PT with INR 12.40 H INR 1.10 PTT (Actin FS) 32.9 VBG pH POC VBG pCO2 POC VBG pO2 Mixed VBG HCO3 Sodium 151 H Potassium 3.5 Chloride 119 H Carbon Dioxide 23 Anion Gap 9 BUN 50 H Creatinine 3.0 H Creat Clearance w eGFR 20.45 POC Glucometer Random Glucose 181 H Hemoglobin A1c % Lactic Acid 0.9 Calcium 10.0 Phosphorus Magnesium Total Bilirubin 0.7 AST 19 ALT 20 Alkaline Phosphatase 67 Troponin I B-Natriuretic Peptide Total Protein 7.4 Albumin 3.7 Triglycerides Cholesterol Total LDL Cholesterol HDL Cholesterol Lipase Urine Color Urine Appearance Urine pH Ur Specific [place] Urine Protein Urine Glucose (UA) Urine Ketones Urine Blood Urine Nitrite Urine Bilirubin Urine Urobilinogen Ur Leukocyte Esterase Urine WBC (Auto) Urine RBC (Auto) Urine Bacteria Urine Mucus 06/17/17 06/17/17 06/18/17 20:19 21:20 06:15 WBC RBC Hgb Hct MCV MCH MCHC RDW Plt Count MPV Neutrophils % Lymphocytes % Monocytes % Eosinophils % Basophils % PT with INR INR PTT (Actin FS) VBG pH POC VBG pCO2 POC VBG pO2 Mixed VBG HCO3 Sodium Potassium Chloride Carbon Dioxide Anion Gap BUN Creatinine Creat Clearance w eGFR POC Glucometer 164 Random Glucose Hemoglobin A1c % Lactic Acid Calcium Phosphorus Magnesium Total Bilirubin AST ALT Alkaline Phosphatase Troponin I 0.05 B-Natriuretic Peptide Total Protein Albumin Triglycerides Cholesterol Total LDL Cholesterol HDL Cholesterol Lipase Urine Color Ltyellow Urine Appearance Clear Urine pH 5.0 Ur Specific [place] 1.013 Urine Protein 2+ H Urine Glucose (UA) Negative Urine Ketones Trace H Urine Blood 1+ H Urine Nitrite Negative Urine Bilirubin Negative Urine Urobilinogen Negative Ur Leukocyte Esterase Negative Urine WBC (Auto) 4 Urine RBC (Auto) 4 Urine Bacteria Rare Urine Mucus Rare 06/18/17 06/18/17 06/18/17 06:45 06:45 06:45 WBC 4.7 RBC 4.13 Hgb 11.8 Hct 36.3 MCV 87.8 MCH 28.7 MCHC 32.7 RDW 15.3 Plt Count 145 MPV 10.1 Neutrophils % 83.2 H Lymphocytes % 7.9 L D Monocytes % 8.3 Eosinophils % 0.2 Basophils % 0.4 PT with INR INR PTT (Actin FS) VBG pH POC VBG pCO2 POC VBG pO2 Mixed VBG HCO3 Sodium 148 H Potassium 3.9 Chloride 118 H Carbon Dioxide 24 Anion Gap 6 L BUN 50 H Creatinine 2.7 H Creat Clearance w eGFR 23.09 POC Glucometer Random Glucose 156 H Hemoglobin A1c % 7.5 H Lactic Acid Calcium 8.7 Phosphorus 2.6 Magnesium 1.9 Total Bilirubin 0.7 AST 31 D ALT 19 Alkaline Phosphatase 58 Troponin I B-Natriuretic Peptide 3675.83 H Total Protein 6.5 Albumin 3.3 L Triglycerides 148 Cholesterol 103 Total LDL Cholesterol 52 HDL Cholesterol 34 L Lipase Urine Color Urine Appearance Urine pH Ur Specific [place] Urine Protein Urine Glucose (UA) Urine Ketones Urine Blood Urine Nitrite Urine Bilirubin Urine Urobilinogen Ur Leukocyte Esterase Urine WBC (Auto) Urine RBC (Auto) Urine Bacteria Urine Mucus Microbiology 06/17/17 21:09 Nasopharyngeal Swab Influenza Types A,B Antigen (JODIE) - Final 06/17/17 21:09 Nasopharyngeal Swab - Final CT A/P - fullness right renal pelvis, ?functional obstruction UPJ ASSESSMENT AND PLAN: 76 yom with pMHx of CAD, s/p PCI x 2 (last in 2017 per patient), CKD stage IV, CL[place] on CPAP, admitted with fevers, nausea, vomiting, diarrhea, and LLL PNA. 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 Gentle hydration with 1/2 NS. No clinical evidence of volume overload currently , rather looks dry. hold lasix/metolazone and monitor volume status closely. Cardiology consulted, follow up 2D echo. levaquin renal dosing, check stool Noro PCR and C difficile. PO as tolerated. Urine legionella studies. Incentive spirometry. Resume ASA/plavix/statin/labetalol/Imdur. Hold minodixil for now. renal ultrasound to assess right UPJ. CPAP hs DVTPPX with heparin Dispo pending clinical improvement. PT eval when improved. Plan discussed with patient in detail, all questions answered.
[2017-06-18] MEDS ORDERED: ROSUVASTATIN CA 10 MG TABLET (FP) ONE (11:11)
[2017-06-18] MEDS: LABETALOL HCL 100 MG TABLET (FP) PO SCH ×2 (11:13→22:21)
[2017-06-18] MEDS: ROSUVASTATIN CA 20 MG TABLET (FP) PO SCH (11:13)
[2017-06-18] MEDS: ASPIRIN 81 MG CHEWABLE TABLETS PO SCH (11:14)
[2017-06-18] MEDS: ISOSORBIDE MONONITRATE 60 MG TAB.SR.24H (FP) PO SCH (11:14)
[2017-06-18] MEDS: CLOPIDOGREL BISULFATE 75 MG TABLET (FP) PO SCH (11:14)
--- NOTE | 2017-06-18 11:14 | CON.PULM ---
Consult Consult Specialty:: PULM/CCM Referred by:: KAN Reason for Consultation:: R/O PNA - History of Present Illness Chief Complaint: AMS History of Present Illness: 76 M, past medical history of colon cancer, HDL, HTN, CAD, s/p 2 stents, CKD stage 4, previously diagnosed CL[place]ON on BiLevel (settings not known), and CVA x 2. Admitted via the ER due to AMS and increased SOB for the past 2 days. However , symptoms of SOB and intermittent CP have been present for the past few weeks. The patient is apparently visiting from [place] for a . Reported history of several non bloody, non bilious episodes of vomiting. Found to have a fever of 102. He is awake and interactive but confused. Breathing is non-labored on NC O2. - History Source History Provided By: Medical Record Limitations to Obtaining History: Poor Historian - Alcohol/Substance Use Hx Alcohol Use: No - Smoking History Smoking history: Never smoked Have you smoked in the past 12 months: No Home Medications - Allergies Allergies/Adverse Reactions: Allergies Allergy/AdvReac Type Severity Reaction Status Date / Time Sulfa (Sulfonamide Allergy Verified 06/17/17 19:20 Antibiotics) - Home Medications Home Medications: Ambulatory Orders Allopurinol [Zyloprim -] 100 mg PO DAILY 06/18/17 Aspirin [ASA -] 81 mg PO DAILY 06/18/17 Bumetanide 1 mg PO Q2D 06/18/17 Cholecalciferol (Vitamin D3) [Vitamin D3 -] 400 unit PO DAILY 06/18/17 Clopidogrel Bisulfate [Plavix] 75 mg PO HS 06/18/17 Cyanocobalamin (Vitamin B-12) [Vitamin B-12] 1,000 mcg PO DAILY 06/18/17 Hydralazine HCl 80 mg PO BID 06/18/17 Insulin Aspart [Novolog] 100 unit SQ AC 06/18/17 Insulin Detemir [Levemir Flextouch] 30 unit SQ HS 06/18/17 Isosorbide Mononitrate [Imdur -] 60 mg PO DAILY 06/18/17 Labetalol HCl 300 mg PO BID 06/18/17 Metolazone 2.5 mg PO DAILY 06/18/17 Minoxidil 5 mg PO BID 06/18/17 Rosuvastatin Calcium [Crestor] 20 mg PO DAILY 06/18/17 Ubidecarenone [Coq-10] 30 mg PO HS 06/18/17 Review of Systems Unable to obtain ROS, reason: Confused Physical Exam Vital Sings: Vital Signs Temperature 101 F H 06/18/17 11:04 Pulse Rate 101 H 06/18/17 11:04 Respiratory Rate 18 06/18/17 11:04 Blood Pressure 151/85 06/18/17 11:04 O2 Sat by Pulse Oximetry (%) 98 06/18/17 03:10 Constitutional: Yes: No Distress, Obese Eyes: Yes: Conjunctiva Clear, EOM Intact HENT: Yes: Atraumatic, Normocephalic Neck: Yes: Supple, Trachea Midline Cardiovascular: Yes: Regular Rate and Rhythm Respiratory: Yes: Diminished, On Nasal O2. No: Accessory Muscle Use, Rales, Rhonchi, Stridor, Tachypnea, Wheezes ...Inspection: Yes: WNL ...Clubbing: No Gastrointestinal: Yes: Normal Bowel Sounds, Soft, Abdomen, Obese Renal/: Yes: WNL Musculoskeletal: Yes: WNL Extremities: Yes: WNL Edema: No Peripheral Pulses WNL: Yes Integumentary: Yes: WNL Neurological: Yes: Confusion Psychiatric: Yes: Other (confusion ) Labs: CBC, BMP 06/18/17 06:45 06/18/17 06:45 Imaging - Results Chest X-ray: Report Reviewed, Image Reviewed Cat Scan: Report Reviewed, Image Reviewed Problem List - Problems (1) Atelectasis Code(s): J98.11 - ATELECTASIS (2) Acute gastroenteritis Code(s): K52.9 - NONINFECTIVE GASTROENTERITIS AND COLITIS, UNSPECIFIED (3) Chronic renal insufficiency, stage IV (severe) Code(s): N18.4 - CHRONIC KIDNEY DISEASE, STAGE 4 (SEVERE) (4) History of colon cancer Code(s): Z85.038 - PERSONAL HISTORY OF MALIGNANT NEOPLASM OF LARGE INTESTINE (5) Hypernatremia Code(s): E87.0 - HYPEROSMOLALITY AND HYPERNATREMIA Assessment/Plan Do not suspect PNA / most likely Atelectasis O2 as needed Will order arbitrary BiLevel settings and can adjust accordingly Aspiration precautions Follow cultures Incentive Spirometry if able ARF workup as ordered Will follow Thank you. Dr Griffith
[2017-06-18 14:46] LABS: URINE CREATININE 78.8 mg/dL (20-370)
--- NOTE | 2017-06-18 16:17 | CONS ---
DATE OF CONSULTATION: This is a 76-year-old male, who lives in [place], presents to the hospital with abrupt onset of vomiting yesterday 3 times, associated with several episodes of non-bloody diarrhea. All of this started yesterday. He also had a fever to 103 here. He has a preceding history of colon polyps, diabetes mellitus, chronic kidney disease, cardiomegaly with 2 stents, and prostate cancer previously treated, in remission. I am asked to see him, as he was initially admitted with a diagnosis of pneumonia and treated accordingly for community-acquired pneumonia. The patient states he has no respiratory complaints. Denies shortness of breath, cough, or sputum production. He does not smoke. He lives with his in [place], [place]. They were here this past week attending a for his [id number] and was otherwise well until after the yesterday, when he developed the above-mentioned symptoms. He does not recall any history of any different foods and notes that his is not ill with any diarrheal complaints. I am asked to see him for further evaluation. He has not had any recent antibiotics nor has he been admitted to the hospital for any reason. PAST MEDICAL HISTORY: As noted above. Also colectomy. Current medications include insulin and levofloxacin. Allergies to SULFA. SOCIAL HISTORY: Retired, nonsmoker. No alcohol use. FAMILY HISTORY: Noncontributory. REVIEW OF SYSTEMS: Respiratory: No cough, shortness of breath. Cardiac: No chest pain, palpitations. Gastrointestinal: As previously mentioned. Denies abdominal pain, blood per rectum, hematemesis. No prior history of diarrheal illness. Genitourinary: History of prostate cancer. No dysuria, hematuria. PHYSICAL EXAMINATION: General: He was an ill-appearing male in no acute distress. Vital Signs: His temperature now 98.9, pulse 94, blood pressure 150/76, respirations 18. Neck: Supple. Lungs: Clear to P&A. Heart: S1, S2. Regular rhythm without audible murmur. Abdomen: Soft, nontender, without hepatosplenomegaly. Extremities: No clubbing, cyanosis or edema. Sodium 151, potassium 3.5, BUN 50, creatinine 3.0. Liver enzymes within normal limits. Lactic acid 0.9. Currently BUN 50, creatinine 2.7. Urinalysis with 4 RBCs, 4 WBCs. Blood cultures thus far no growth. Influenza screening was negative. A chest x-ray shows no evidence of acute infiltrate. An abdominal CT scan currently not yet read. Pulmonary feels no obvious infiltrate seen at the bases. ASSESSMENT: Clinical findings seem consistent with an acute gastroenteritis. Differential diagnosis would include enteric pathogens including E coli O157. The patient has chronic kidney disease but this may be acute superimposed on chronic kidney disease. Additionally, Norovirus considered. Clostridium difficile less likely. PLAN: Cultures of blood, stool culture, Norovirus PCR, and O&P ordered. Intravenous fluids and renal consult pending. JOSE KHOURY M.D. MIHIR/[id number]
--- NOTE | 2017-06-18 20:49 | CON.CARD ---
Consult Consult Specialty:: cardiology - History of Present Illness History of Present Illness: The patient is a 76 year old male with a significant PMH of colon cancer, diabetes, kidney failure, cardiomegaly, s/p TN x 2 -->2 stents placed (?2017 in "[place], [place]), CVA, who presents to the emergency department with multiple episodes of nonbloody, nonbilious vomit this morning and chest pain localized in the sterum, nonradiating this evening. The patient reports he took pepto-bismol today. The patient has a fever of 103 here in the ER. The patient states he took two Tylenol PMs and a benadryl two hours before arrival. - History Source History Provided By: Patient, Medical Record Limitations to Obtaining History: Other (speech is hesitant; pt unsure of history, dates) - Past Medical History POULTRY CUTTER: Yes: CVA Cardio/Vascular: Yes: CAD, HTN, Hyperlipdemia, TN Renal/: Yes: Renal Inusuff Endocrine: Yes: Diabetes Mellitus - Past Surgical History Past Surgical History: Yes: Stent (coronary) - Alcohol/Substance Use Hx Alcohol Use: No - Smoking History Smoking history: Never smoked Have you smoked in the past 12 months: No Home Medications - Allergies Allergies/Adverse Reactions: Allergies Allergy/AdvReac Type Severity Reaction Status Date / Time Sulfa (Sulfonamide Allergy Verified 06/17/17 19:20 Antibiotics) - Home Medications Home Medications: Ambulatory Orders Allopurinol [Zyloprim -] 100 mg PO DAILY 06/18/17 Aspirin [ASA -] 81 mg PO DAILY 06/18/17 Bumetanide 1 mg PO Q2D 06/18/17 Cholecalciferol (Vitamin D3) [Vitamin D3 -] 400 unit PO DAILY 06/18/17 Clopidogrel Bisulfate [Plavix] 75 mg PO HS 06/18/17 Cyanocobalamin (Vitamin B-12) [Vitamin B-12] 1,000 mcg PO DAILY 06/18/17 Hydralazine HCl 80 mg PO BID 06/18/17 Insulin Aspart [Novolog] 100 unit SQ AC 06/18/17 Insulin Detemir [Levemir Flextouch] 30 unit SQ HS 06/18/17 Isosorbide Mononitrate [Imdur -] 60 mg PO DAILY 06/18/17 Labetalol HCl 300 mg PO BID 06/18/17 Metolazone 2.5 mg PO DAILY 06/18/17 Minoxidil 5 mg PO BID 06/18/17 Rosuvastatin Calcium [Crestor] 20 mg PO DAILY 06/18/17 Ubidecarenone [Coq-10] 30 mg PO HS 06/18/17 Family Disease History - Family Disease History Family History: Denies Review of Systems - Review of Systems Constitutional: reports: Weakness Eyes: reports: No Symptoms HENT: reports: No Symptoms Neck: reports: No Symptoms Cardiovascular: reports: Chest Pain, Shortness of Breath Respiratory: reports: SOB Gastrointestinal: reports: Nausea, Vomiting Musculoskeletal: reports: Muscle Weakness Neurological: reports: Weakness Psychiatric: reports: Anxiety - Risk Factors Known Risk Factors: Yes: Age, Diabetes Mellitus, Gender, Hypercholesterolemia, Hypertension, Physical Inactivity, Prior TN /Emb Stroke Vital Signs: Vital Signs Temperature 99.3 F 06/18/17 16:30 Pulse Rate 76 06/18/17 16:30 Respiratory Rate 20 06/18/17 16:30 Blood Pressure 132/71 06/18/17 16:30 O2 Sat by Pulse Oximetry (%) 98 06/18/17 09:00 Abnormal Lab Results 06/18/17 06/18/17 06/18/17 06:45 06:45 06:45 Neutrophils % 83.2 H Lymphocytes % 7.9 L D Sodium 148 H Chloride 118 H Anion Gap 6 L BUN 50 H Creatinine 2.7 H Random Glucose 156 H Hemoglobin A1c % 7.5 H B-Natriuretic Peptide 3675.83 H Albumin 3.3 L HDL Cholesterol 34 L U Random Total Protein 06/18/17 11:20 Neutrophils % Lymphocytes % Sodium Chloride Anion Gap BUN Creatinine Random Glucose Hemoglobin A1c % B-Natriuretic Peptide Albumin HDL Cholesterol U Random Total Protein 137 H Constitutional: Yes: Well Nourished, No Distress, Calm Eyes: Yes: WNL, Conjunctiva Clear, EOM Intact HENT: Yes: WNL, Atraumatic, Normocephalic Neck: Yes: WNL, Supple, Trachea Midline Respiratory: Yes: WNL, Regular, CTA Bilaterally Gastrointestinal: Yes: WNL, Normal Bowel Sounds Renal/: Yes: WNL Cardiovascular: Yes: WNL, Regular Rate and Rhythm Musculoskeletal: Yes: WNL Extremities: Yes: WNL Integumentary: Yes: WNL Neurological: Yes: WNL, Alert, Oriented ...Motor Strength: WNL Psychiatric: Yes: WNL, Alert, Oriented - Other Data Labs, Other Data: CBC, BMP 06/18/17 06:45 06/18/17 06:45 INR, PTT INR 1.10 (0.82-1.09) 06/17/17 20:19 Troponin, BNP 06/17/17 06/18/17 20:19 06:45 Troponin I 0.05 B-Natriuretic Peptide 3675.83 H Troponin, BNP 06/17/17 06/18/17 20:19 06:45 Troponin I 0.05 B-Natriuretic Peptide 3675.83 H Imaging - Results Chest X-ray: Image Reviewed (chf) EKG: Image Reviewed (NSR; LAFB; LVH; ? old lateral and inferior wall MIs) Problem List - Problems (1) Myocardial infarct, old Assessment/Plan: Pt gives hx TN x 2; coronary stents 2017 in [place]. EKG: NSR; ?old lateral and inferior wall MIs; LVH; LAFB. On ASA and clopidogrel. F/u records. F/u ECHO for LVEF, wall motion. TNI 0.05; f/u serially. Chest pain: atypical (at rest; both knifel-like and "ache"; lasted seconds). F/u results of most recent stress test, coronary angiogram. Code(s): I25.2 - OLD MYOCARDIAL INFARCTION (2) Acute gastroenteritis Code(s): K52.9 - NONINFECTIVE GASTROENTERITIS AND COLITIS, UNSPECIFIED (3) History of colon cancer Code(s): Z85.038 - PERSONAL HISTORY OF MALIGNANT NEOPLASM OF LARGE INTESTINE (4) CVA (cerebral vascular accident) Assessment/Plan: hesitant speech; weakness. No head CT available. F/u with neurologist. Code(s): I63.9 - CEREBRAL INFARCTION, UNSPECIFIED (5) Vomiting Assessment/Plan: 1st TNI 0.05. Febrile. F/u with GI, ID. Code(s): R11.10 - VOMITING, UNSPECIFIED (6) Diabetes Code(s): E11.9 - TYPE 2 DIABETES MELLITUS WITHOUT COMPLICATIONS (7) Renal insufficiency Code(s): N28.9 - DISORDER OF KIDNEY AND URETER, UNSPECIFIED (8) HTN (hypertension) Assessment/Plan: on Labetalol. Code(s): I10 - ESSENTIAL (PRIMARY) HYPERTENSION
[2017-06-18] MEDS ORDERED: INSULIN (NOVOLOG) ASPART 100 UNITS/ML 10ML VIAL ONE (22:19)
--- NOTE | 2017-06-19 00:10 | EKG ---
Test Reason : Blood Pressure : / mmHG Vent. Rate : 116 BPM Atrial Rate : 116 BPM P-R Int : 000 ms QRS Dur : 102 ms QT Int : 342 ms P-R-T Axes : -07 -57 087 degrees QTc Int : 475 ms POOR DATA QUALITY, INTERPRETATION MAY BE ADVERSELY AFFECTED SINUS TACHYCARDIA LEFT ANTERIOR FASCICULAR BLOCK LEFT VENTRICULAR HYPERTROPHY WITH REPOLARIZATION ABNORMALITY POSSIBLE LATERAL INFARCT , AGE UNDETERMINED CANNOT RULE OUT INFERIOR INFARCT (MASKED BY FASCICULAR BLOCK?) , AGE UNDETERMINED ABNORMAL ECG NO PREVIOUS ECGS AVAILABLE Confirmed by AARON BRIONES MD ([id number]) on 06/19/2017 12:10:41 AM Referred By: Confirmed By:AARON BRIONES MD
[2017-06-19] MEDS: HEPARIN NA (PORCINE) 5,000 UNITS/ML 1ML VIAL SQ SCH (05:44)
--- NOTE | 2017-06-19 06:04 | PN ---
Physical Exam: SUBJECTIVE: Patient seen and examined by me this AM -A&Ox3. BP elevated to 160 systolic last night, med rec not updated in JUN; Febrile to 101 yesterday; NS held - Pt complained of CP overnight for a few hours; denies SOB, cough, ab pain, back pain, rashes, f/c/n/v/d PM: - Pt ordered for EKG, trops given complaint of CP overnight; Family counseled on status, plan at bedside; all questions answered OBJECTIVE: Vital Signs Intake & Output 06/16/17 06/17/17 06/18/17 06/19/17 23:59 23:59 23:59 23:59 Intake Total 1564 Output Total 975 Balance 589 Weight 107.048 kg 102.965 kg Period Temp Pulse Resp BP Sys/Segovia Pulse Ox Last 24 Hr 98.4 F-101 F 74-101 18-20 132-168/71-95 98-98 GENERAL: The patient is awake, alert, and fully oriented, NAD, A&Ox3 HEAD: Normal with no signs of trauma. EYES: PERRL, extraocular movements intact, sclera anicteric, conjunctiva clear. No ptosis. ENT: Ears normal, nares patent, oropharynx clear without exudates, moist mucous membranes. NECK: Trachea midline, full range of motion, supple. No JVD noted. LUNGS: Bibasilar rhonchi. No wheezing, accessory muscle use. Appears dyspneic. HEART: Regular rate and rhythm, S1, S2 without murmur, rub or gallop. ABDOMEN: Mild abdominal distension. Soft, nontender, normoactive bowel sounds, no guarding, no rebound, no hepatosplenomegaly, no masses. EXTREMITIES: 2+ pulses, warm, well-perfused. 1+ BL edema NEUROLOGICAL: Cranial nerves II through XII grossly intact. Normal speech, gait not observed. PSYCH: Normal mood, normal affect. Plesant SKIN: Warm, dry, normal turgor, no rashes or lesions noted Laboratory Results - last 24 hr CBC, BMP 06/19/17 05:35 06/19/17 05:35 06/18/17 06:45 06/18/17 06:45 06/18/17 06/18/17 06/18/17 06:15 06:45 06:45 WBC 4.7 RBC 4.13 Hgb 11.8 Hct 36.3 MCV 87.8 MCH 28.7 MCHC 32.7 RDW 15.3 Plt Count 145 MPV 10.1 Neutrophils % 83.2 H Lymphocytes % 7.9 L D Monocytes % 8.3 Eosinophils % 0.2 Basophils % 0.4 Sodium 148 H Potassium 3.9 Chloride 118 H Carbon Dioxide 24 Anion Gap 6 L BUN 50 H Creatinine 2.7 H Creat Clearance w eGFR 23.09 POC Glucometer 164 Random Glucose 156 H Hemoglobin A1c % Calcium 8.7 Phosphorus 2.6 Magnesium 1.9 Total Bilirubin 0.7 AST 31 D ALT 19 Alkaline Phosphatase 58 B-Natriuretic Peptide 3675.83 H Total Protein 6.5 Albumin 3.3 L Triglycerides 148 Cholesterol 103 Total LDL Cholesterol 52 HDL Cholesterol 34 L U Random Total Protein Ur Random Sodium Ur Random Urea Nitrogn Urine Creatinine 06/18/17 06/18/17 06/18/17 06:45 11:08 11:20 WBC RBC Hgb Hct MCV MCH MCHC RDW Plt Count MPV Neutrophils % Lymphocytes % Monocytes % Eosinophils % Basophils % Sodium Potassium Chloride Carbon Dioxide Anion Gap BUN Creatinine Creat Clearance w eGFR POC Glucometer 172 Random Glucose Hemoglobin A1c % 7.5 H Calcium Phosphorus Magnesium Total Bilirubin AST ALT Alkaline Phosphatase B-Natriuretic Peptide Total Protein Albumin Triglycerides Cholesterol Total LDL Cholesterol HDL Cholesterol U Random Total Protein Ur Random Sodium 62 Ur Random Urea Nitrogn Urine Creatinine 06/18/17 06/18/17 06/18/17 11:20 17:10 22:12 WBC RBC Hgb Hct MCV MCH MCHC RDW Plt Count MPV Neutrophils % Lymphocytes % Monocytes % Eosinophils % Basophils % Sodium Potassium Chloride Carbon Dioxide Anion Gap BUN Creatinine Creat Clearance w eGFR POC Glucometer 112 151 Random Glucose Hemoglobin A1c % Calcium Phosphorus Magnesium Total Bilirubin AST ALT Alkaline Phosphatase B-Natriuretic Peptide Total Protein Albumin Triglycerides Cholesterol Total LDL Cholesterol HDL Cholesterol U Random Total Protein 137 H Ur Random Sodium Ur Random Urea Nitrogn 634 Urine Creatinine 78.8 06/19/17 05:19 WBC RBC Hgb Hct MCV MCH MCHC RDW Plt Count MPV Neutrophils % Lymphocytes % Monocytes % Eosinophils % Basophils % Sodium Potassium Chloride Carbon Dioxide Anion Gap BUN Creatinine Creat Clearance w eGFR POC Glucometer 128 Random Glucose Hemoglobin A1c % Calcium Phosphorus Magnesium Total Bilirubin AST ALT Alkaline Phosphatase B-Natriuretic Peptide Total Protein Albumin Triglycerides Cholesterol Total LDL Cholesterol HDL Cholesterol U Random Total Protein Ur Random Sodium Ur Random Urea Nitrogn Urine Creatinine Active Medications Generic Name Dose Route Start Last Admin Trade Name Sampsonq PRN Reason Stop Dose Admin Acetaminophen 650 mg 06/18/17 03:34 06/18/17 11:14 Tylenol - PO 650 mg Q6H PRN Administration FEVER Aspirin 81 mg 06/18/17 10:30 06/18/17 11:14 Asa - PO 81 mg DAILY [facility] Administration Cholecalciferol 400 unit 06/19/17 10:00 Vitamin D3 - PO DAILY [facility] Clopidogrel Bisulfate 75 mg 06/18/17 10:30 06/18/17 11:14 Plavix - PO 75 mg DAILY [facility] Administration Cyanocobalamin 1,000 mcg 06/19/17 10:00 Vitamin B12 - PO DAILY [facility] Heparin Sodium (Porcine) 5,000 unit 06/18/17 06:00 06/19/17 05:44 Heparin - SQ 5,000 unit TID [facility] Administration Levofloxacin 250 mg in 50 mls @ 50 mls/hr 06/19/17 10:00 Levaquin 250 Mg Premixed Ivpb - IVPB DAILY [facility] Sodium Chloride 1,000 mls @ 75 mls/hr 06/18/17 09:45 06/18/17 10:34 1/2 Normal Saline IV 06/19/17 09:44 75 mls/hr ASDIR [facility] Administration Insulin Aspart 1 vial 06/18/17 07:00 06/18/17 22:22 Novolog Vial Sliding Scale - SQ 2 units ACHS [facility] Administration Protocol Isosorbide Mononitrate 60 mg 06/18/17 10:30 06/18/17 11:14 Imdur - PO 60 mg DAILY [facility] Administration Labetalol HCl 300 mg 06/18/17 10:30 06/18/17 22:21 Normodyne - PO 300 mg BID [facility] Administration Rosuvastatin Calcium 20 mg 06/18/17 10:30 06/18/17 11:13 Crestor - PO 20 mg DAILY [facility] Administration Microbiology 06/17/17 20:10 Blood - Peripheral Venous Blood Culture - Preliminary NO GROWTH OBTAINED AFTER 24 HOURS, INCUBATION TO CONTINUE FOR 4 DAYS. 06/17/17 20:10 Blood - Peripheral Venous Blood Culture - Preliminary NO GROWTH OBTAINED AFTER 24 HOURS, INCUBATION TO CONTINUE FOR 4 DAYS. 06/18/17 06:00 Urine For Antigen Detection Legionella Antigen - Final 06/18/17 06:00 Urine For Antigen Detection Streptococcus pneumoniae Antigen (M - Final 06/17/17 21:09 Nasopharyngeal Swab Influenza Types A,B Antigen (JODIE) - Final 06/17/17 21:09 Nasopharyngeal Swab - Final Imaging: CXR 06/17 - Imaging reveals a large heart, unfolded aorta, congestive changes and possible retrocardiac infiltrate. Follow-up recommended. CXR 06/17 - Since 06/17/2017 2022 hours again is a large heart with unfolded aorta and congestive changes. There may be a left base infiltrate. Follow-up recommended. US abdomen 06/17 - IMPRESSION: Limited study with no definite evidence of acute pathology. Ab/Pelvis CT - IMPRESSION: 1. Cardiomegaly, bibasilar atelectasis and trace pleural effusions. 2. No evidence of acute pathology within the abdomen or pelvis. Please see above discussion. EKG 06/17 - Rate 117, Sinus Tach, LVH, LAD, QTC 475, LAF block EKG 06/19 - Rate 73, Sinus w/ 1st degree block, QTC 453, LAF block, LAD, no ST/ TW changes ECHO 06/19 - EF 53%; LV function mildly reduced, normal size; Biatrial dilatation ; Trace pulm valve regurg; trace TR ASSESSMENT/PLAN: 76 year old male with a PMH of colon cancer, CAD, s/p 2 stents,CKD stage 4, [place] on BiPap at night, CVA x 2 who presented to the hospital with AMS and increased SOB for the past 2 days. He is admitted to med surg for sepsis due to pneumonia. Now with recent complaints of chest pain, sent for EKG, trops #Sepsis due to pneumonia - Bibasilar atelectasis on CT scan; Left lower lobe infiltrate - cont levaquin - Restarted 1/2 N/S - ID consulted, recs appreciated - urine and blood cultures ordered, flu swab negative - Bipap per ID #R/o NSTEMI - repeat trop elevated at ~0.76; EKG with no ST/TW abnormalities; ECHO w/ no wall motion abnormalities - Trend trops - Cardiology following - Consider heparin gtt if trops continue uptrending #Heart failure with preserved EF - BNP 3675 -cardiology consulted, recs appreciated -Restart home BP meds -1/2 NS at 75cc -ECHo results noted -BNP 3700 - Imdur, normodyne; hold bijal/arb for now; prior hx of allergy to BIJAL/ARB per music copyist, Dr. Higuera in [place], [place] #HTN - hypertensive overnight to 180s systolic; did not receive home meds - Restarted on home htn meds - minoxidil, labetalol, metolazone, hydralazine - Monitor for hypotension #DMII - HGb A1C 7.5 -ISS -BGM ACHS #Diarrhea - no episodes overnight; - Norovirus, O+P pending, C diff culture/toxins - Trend - Contact isolation #CKD stage 4 - Proteinuria; Cr 2.[address] Zan Higuera in [place], [place] - Renal consulted, recs appreciated - avoid nephrotoxic substances - Trend - Renal dosing for meds - IVFs - Urine lytes normal - CT ab/pelvis with possible UPJ obstruction - Consider renal u/s #CAD - plavix, asa - crestor #[place]: - Pulm consulted, recs appreciated - IS - CPAP overnight - IS #Hypernatremia: -low Na diet; 1/2 NS - Trend #F/E/N: 1/2 NS 75 cc Daily lytes Na controlled diet #DVT PPX: HSQ Disposition: MS Plan discussed with attending, Dr. Pepe Hernandez, PGY1 Visit type - Emergency Visit Emergency Visit: Yes ED Registration Date: 06/18/17 Care time: The patient presented to the Emergency Department on the above date and was hospitalized for further evaluation of their emergent condition. - New Patient This patient is new to me today: Yes Date on this admission: 06/20/17 - Critical Care Critical Care patient: No
[2017-06-19] MEDS: INSULIN SLIDING SCALE (NOVOLOG) 1 VIAL SQ SCH ×3 (06:05→21:33)
[2017-06-19 07:27] LABS: CHLORIDE 117 mmol/L (98-107); POTASSIUM 3.7 mmol/L (3.5-5.1); SODIUM 149 mmol/L (136-145)
[2017-06-19 07:45] LABS: BASO % 0.6 % (0-2.0); EOS % 1.7 % (0-4.5); HEMATOCRIT 34.1 % (35.4-49); HEMOGLOBIN 11.2 GM/dL (11.7-16.9); LYMPH % 20.7 % (8-40); MCH 28.5 pg (25.7-33.7); MCHC 32.7 g/dl (32.0-35.9); MEAN CELL VOLUME 87.1 fl (80-96); MEAN PLT VOLUME 9.8 fl (7.5-11.1); MONO % 13.6 % (3.8-10.2); NEUT % 63.4 % (42.8-82.8); PLATELET COUNT 141 K/MM3 (134-434); RBC 3.92 M/mm3 (4.00-5.60); RDW 14.8 % (11.9-15.9); WHITE BLOOD COUNT 4.8 K/mm3 (4.0-10.0)
[2017-06-19 07:54] LABS: ALBUMIN 2.9 g/dl (3.4-5.0); ALK PHOS 57 U/L (45-117); ANION GAP 12 (8-16); BILIRUBIN,TOTAL 0.7 mg/dL (0.2-1.0); BLOOD UREA NITROGEN 46 mg/dL (7-18); CALCIUM 9.8 mg/dL (8.5-10.1); CO2 20 mmol/L (21-32); CREATININE 2.6 mg/dL (0.7-1.3); GLUCOSE,RANDOM 120 mg/dL (74-106); MAGNESIUM 2.2 mg/dL (1.8-2.4); PHOSPHOROUS 2.6 mg/dL (2.5-4.9); SGOT/AST 32 U/L (15-37); SGPT/ALT 21 U/L (12-78); TOT PROT 6.1 g/dl (6.4-8.2)
--- NOTE | 2017-06-19 08:56 | PN ---
Teaching Attending Note Name of Resident: Sahara Vera ATTENDING PHYSICIAN STATEMENT I saw and evaluated the patient. I reviewed the resident's note and discussed the case with the resident. I agree with the resident's findings and plan as documented with exceptions below. SUBJECTIVE: Patient seen and examined. denies any chest pain, palpitations, dyspnea, dizziness, abdominal or urinary complaint. No further fevers or diarrhea. reprots episode of chest pain overnight which attributes to his High BP, currently denies. OBJECTIVE: Vital Signs Period Temp Pulse Resp BP Sys/Segovia Pulse Ox Last 24 Hr 98.4 F-101 F 74-101 18-20 132-168/71-95 98-98 Intake & Output 06/16/17 06/17/17 06/18/17 06/19/17 23:59 23:59 23:59 23:59 Intake Total 1564 750 Output Total 975 500 Balance 589 250 Weight 236 lb 227 lb 227 lb 11.2 oz General: sitting in bed in no acute distress Chest: CTAB, no rales CVS: S1S2 regular Abdomen: soft, obese NT extremities; no edema Home Medication List Medication Instructions Recorded Confirmed Type Allopurinol [Zyloprim -] 100 mg PO DAILY 06/18/17 06/18/17 History Aspirin [ASA -] 81 mg PO DAILY 06/18/17 06/18/17 History Bumetanide 1 mg PO Q2D 06/18/17 06/18/17 History Cholecalciferol (Vitamin D3) 400 unit PO DAILY 06/18/17 06/18/17 History [Vitamin D3 -] Clopidogrel Bisulfate [Plavix] 75 mg PO HS 06/18/17 06/18/17 History Cyanocobalamin (Vitamin B-12) 1,000 mcg PO DAILY 06/18/17 06/18/17 History [Vitamin B-12] Hydralazine HCl 80 mg PO BID 06/18/17 06/18/17 History Insulin Aspart [Novolog] 100 unit SQ AC 06/18/17 06/18/17 History Insulin Detemir [Levemir Flextouch] 30 unit SQ HS 06/18/17 06/18/17 History Isosorbide Mononitrate [Imdur -] 60 mg PO DAILY 06/18/17 06/18/17 History Labetalol HCl 300 mg PO BID 06/18/17 06/18/17 History Metolazone 2.5 mg PO DAILY 06/18/17 06/18/17 History Minoxidil 5 mg PO BID 06/18/17 06/18/17 History Rosuvastatin Calcium [Crestor] 20 mg PO DAILY 06/18/17 06/18/17 History Ubidecarenone [Coq-10] 30 mg PO HS 06/18/17 06/18/17 History Active Medications Generic Name Dose Route Start Last Admin Trade Name Alexandra PRN Reason Stop Dose Admin Acetaminophen 650 mg 06/18/17 03:34 06/18/17 11:14 Tylenol - PO 650 mg Q6H PRN Administration FEVER Aspirin 81 mg 06/18/17 10:30 06/18/17 11:14 Asa - PO 81 mg DAILY [facility] Administration Cholecalciferol 400 unit 06/19/17 10:00 Vitamin D3 - PO DAILY [facility] Clopidogrel Bisulfate 75 mg 06/18/17 10:30 06/18/17 11:14 Plavix - PO 75 mg DAILY [facility] Administration Cyanocobalamin 1,000 mcg 06/19/17 10:00 Vitamin B12 - PO DAILY [facility] Heparin Sodium (Porcine) 5,000 unit 06/18/17 06:00 06/19/17 05:44 Heparin - SQ 5,000 unit TID [facility] Administration Levofloxacin 250 mg in 50 mls @ 50 mls/hr 06/19/17 10:00 Levaquin 250 Mg Premixed Ivpb - IVPB DAILY [facility] Sodium Chloride 1,000 mls @ 75 mls/hr 06/18/17 09:45 06/18/17 10:34 1/2 Normal Saline IV 06/19/17 09:44 75 mls/hr ASDIR [facility] Administration Insulin Aspart 1 vial 06/18/17 07:00 06/19/17 06:05 Novolog Vial Sliding Scale - SQ Not Given ACHS [facility] Protocol Isosorbide Mononitrate 60 mg 06/18/17 10:30 06/18/17 11:14 Imdur - PO 60 mg DAILY [facility] Administration Labetalol HCl 300 mg 06/18/17 10:30 06/18/17 22:21 Normodyne - PO 300 mg BID [facility] Administration Rosuvastatin Calcium 20 mg 06/18/17 10:30 06/18/17 11:13 Crestor - PO 20 mg DAILY [facility] Administration Laboratory Results - last 24 hr 06/18/17 06/18/17 06/18/17 06:45 11:08 11:20 WBC RBC Hgb Hct MCV MCH MCHC RDW Plt Count MPV Neutrophils % Lymphocytes % Monocytes % Eosinophils % Basophils % Sodium Potassium Chloride Carbon Dioxide Anion Gap BUN Creatinine Creat Clearance w eGFR POC Glucometer 172 Random Glucose Hemoglobin A1c % 7.5 H Calcium Phosphorus Magnesium Total Bilirubin AST ALT Alkaline Phosphatase Total Protein Albumin U Random Total Protein Ur Random Sodium 62 Ur Random Urea Nitrogn Urine Creatinine 06/18/17 06/18/17 06/18/17 11:20 17:10 22:12 WBC RBC Hgb Hct MCV MCH MCHC RDW Plt Count MPV Neutrophils % Lymphocytes % Monocytes % Eosinophils % Basophils % Sodium Potassium Chloride Carbon Dioxide Anion Gap BUN Creatinine Creat Clearance w eGFR POC Glucometer 112 151 Random Glucose Hemoglobin A1c % Calcium Phosphorus Magnesium Total Bilirubin AST ALT Alkaline Phosphatase Total Protein Albumin U Random Total Protein 137 H Ur Random Sodium Ur Random Urea Nitrogn 634 Urine Creatinine 78.8 06/19/17 06/19/17 06/19/17 05:19 05:35 05:35 WBC 4.8 RBC 3.92 L Hgb 11.2 L Hct 34.1 L MCV 87.1 MCH 28.5 MCHC 32.7 RDW 14.8 Plt Count 141 MPV 9.8 Neutrophils % 63.4 D Lymphocytes % 20.7 D Monocytes % 13.6 H Eosinophils % 1.7 D Basophils % 0.6 Sodium 149 H Potassium 3.7 Chloride 117 H Carbon Dioxide 20 L Anion Gap 12 BUN 46 H Creatinine 2.6 H Creat Clearance w eGFR 24.12 POC Glucometer 128 Random Glucose 120 H D Hemoglobin A1c % Calcium 9.8 Phosphorus 2.6 Magnesium 2.2 Total Bilirubin 0.7 AST 32 ALT 21 Alkaline Phosphatase 57 Total Protein 6.1 L Albumin 2.9 L U Random Total Protein Ur Random Sodium Ur Random Urea Nitrogn Urine Creatinine Microbiology 06/17/17 20:10 Blood - Peripheral Venous Blood Culture - Preliminary NO GROWTH OBTAINED AFTER 24 HOURS, INCUBATION TO CONTINUE FOR 4 DAYS. 06/17/17 20:10 Blood - Peripheral Venous Blood Culture - Preliminary NO GROWTH OBTAINED AFTER 24 HOURS, INCUBATION TO CONTINUE FOR 4 DAYS. 06/18/17 06:00 Urine For Antigen Detection Legionella Antigen - Final 06/18/17 06:00 Urine For Antigen Detection Streptococcus pneumoniae Antigen (M - Final 06/17/17 21:09 Nasopharyngeal Swab Influenza Types A,B Antigen (JODIE) - Final 06/17/17 21:09 Nasopharyngeal Swab - Final ASSESSMENT AND PLAN: 76 yom with pMHx of CAD, s/p PCI x 2 (last in 2017 per patient), CKD stage IV, [place] on CPAP, admitted with fevers, nausea, vomiting, diarrhea, and LLL PNA. 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 Low suspicion for NSTEMI given non concerning EKG and 2D echo neg for WMA Discussed with Dr. Linares, cycle CE, if rising, heparin drip. Continue ASA/plavix/statin/labetalol. Resume home hydralazine/minoxidil. Nephrology/ID input appreciated. Gentle hydration with 1/2 NS. No clinical evidence of volume overload currently , monitor closely. hold lasix/metolazone and monitor volume status closely. levaquin renal dosing, Follow up stool Noro PCR. Stool C difficile neg. PO as tolerated. Urine legionella studies. Incentive spirometry. Renal ultrasound to assess right UPJ ?functional obstruction, renal function stable. CPAP hs DVTPPX with heparin Dispo pending clinical improvement. PT eval when improved. Plan discussed with patient in detail, all questions answered.
--- NOTE | 2017-06-19 09:45 | PN ---
Progress Note, Physician Chief Complaint: ID No diarrhea or vomiting Did no provide stool specimen as advised NO fevers - Current Medication List Current Medications: Active Medications Acetaminophen (Tylenol -) 650 mg PO Q6H PRN PRN Reason: FEVER Last Admin: 06/18/17 11:14 Dose: 650 mg Aspirin (Asa -) 81 mg PO DAILY [facility] Last Admin: 06/18/17 11:14 Dose: 81 mg Cholecalciferol (Vitamin D3 -) 400 unit PO DAILY [facility] Clopidogrel Bisulfate (Plavix -) 75 mg PO DAILY [facility] Last Admin: 06/18/17 11:14 Dose: 75 mg Cyanocobalamin (Vitamin B12 -) 1,000 mcg PO DAILY [facility] Heparin Sodium (Porcine) (Heparin -) 5,000 unit SQ TID [facility] Last Admin: 06/19/17 05:44 Dose: 5,000 unit Levofloxacin (Levaquin 250 Mg Premixed Ivpb -) 250 mg in 50 mls @ 50 mls/hr IVPB DAILY [facility] Sodium Chloride (1/2 Normal Saline) 1,000 mls @ 75 mls/hr IV ASDIR [facility] Stop: 06/19/17 09:44 Last Admin: 06/18/17 10:34 Dose: 75 mls/hr Insulin Aspart (Novolog Vial Sliding Scale -) 1 vial SQ ACHS [facility] PRN Reason: Protocol Last Admin: 06/19/17 06:05 Dose: Not Given Isosorbide Mononitrate (Imdur -) 60 mg PO DAILY [facility] Last Admin: 06/18/17 11:14 Dose: 60 mg Labetalol HCl (Normodyne -) 300 mg PO BID [facility] Last Admin: 06/18/17 22:21 Dose: 300 mg Rosuvastatin Calcium (Crestor -) 20 mg PO DAILY [facility] Last Admin: 06/18/17 11:13 Dose: 20 mg - Objective Vital Signs: Vital Signs Temperature 98.4 F 06/19/17 06:00 Pulse Rate 74 06/19/17 06:00 Respiratory Rate 20 06/19/17 06:00 Blood Pressure 138/95 06/19/17 06:00 O2 Sat by Pulse Oximetry (%) 98 06/18/17 21:00 Constitutional: Yes: No Distress Cardiovascular: Yes: S1, S2 Respiratory: Yes: WNL, Regular, CTA Bilaterally Gastrointestinal: Yes: WNL, Normal Bowel Sounds, Soft. No: Tenderness Labs: CBC, BMP 06/19/17 05:35 06/19/17 05:35 INR, PTT INR 1.10 (0.82-1.09) 06/17/17 20:19 Problem List - Problems (1) Acute gastroenteritis Code(s): K52.9 - NONINFECTIVE GASTROENTERITIS AND COLITIS, UNSPECIFIED Assessment/Plan Microbiology 06/18/17 06:00 Urine For Antigen Detection Legionella Antigen - Final 06/18/17 06:00 Urine For Antigen Detection Streptococcus pneumoniae Antigen (M - Final 06/17/17 21:09 Nasopharyngeal Swab Influenza Types A,B Antigen (JODIE) - Final 06/17/17 21:09 Nasopharyngeal Swab - Final 06/17/17 20:10 Blood - Peripheral Venous Blood Culture - Preliminary NO GROWTH OBTAINED AFTER 24 HOURS, INCUBATION TO CONTINUE FOR 4 DAYS. 06/17/17 20:10 Blood - Peripheral Venous Blood Culture - Preliminary NO GROWTH OBTAINED AFTER 24 HOURS, INCUBATION TO CONTINUE FOR 4 DAYS. Laboratory Tests 06/19/17 06/19/17 05:35 05:35 WBC 4.8 Hgb 11.2 L Plt Count 141 Creat Clearance w eGFR 24.12 Assessment Acute gastroenteritis improving No culture ? Viral disease though cannot be sure Acute and chronic renal failure approaching normal Diabetes Plan Out of bed encourage ambulate Moniter lypato Consider stopping antibiotics as most of the enterics should improve in any case Linda HOOK
[2017-06-19] MEDS ORDERED: CHOLECALCIFEROL (VITAMIN D3) 400 UNIT TABLET (FP) PO SCH (10:00)
[2017-06-19] MEDS ORDERED: CYANOCOBALAMIN 1,000 MCG TABLET (FP) PO SCH (10:00)
--- NOTE | 2017-06-19 10:15 | PN ---
Progress Note (short form) - Note Progress Note: PULMONARY States diarrhea has resolved, now reports constipation. No shortness of breath or cough. Last Vital Signs Temp Pulse Resp BP Pulse Ox 98.4 F 74 20 138/95 98 06/19/17 06:00 06/19/17 06:00 06/19/17 06:00 06/19/17 06:00 06/18/17 21:00 Gen: NAD at rest Heart: RRR Lung: right base rales Abd: soft, nontender Ext: no edema CBC, BMP 06/19/17 05:35 06/19/17 05:35 Active Medications Acetaminophen (Tylenol -) 650 mg PO Q6H PRN PRN Reason: FEVER Last Admin: 06/18/17 11:14 Dose: 650 mg Aspirin (Asa -) 81 mg PO DAILY [facility] Last Admin: 06/18/17 11:14 Dose: 81 mg Cholecalciferol (Vitamin D3 -) 400 unit PO DAILY [facility] Clopidogrel Bisulfate (Plavix -) 75 mg PO DAILY [facility] Last Admin: 06/18/17 11:14 Dose: 75 mg Cyanocobalamin (Vitamin B12 -) 1,000 mcg PO DAILY [facility] Heparin Sodium (Porcine) (Heparin -) 5,000 unit SQ TID [facility] Last Admin: 06/19/17 05:44 Dose: 5,000 unit Levofloxacin (Levaquin 250 Mg Premixed Ivpb -) 250 mg in 50 mls @ 50 mls/hr IVPB DAILY [facility] Insulin Aspart (Novolog Vial Sliding Scale -) 1 vial SQ ACHS [facility] PRN Reason: Protocol Last Admin: 06/19/17 06:05 Dose: Not Given Isosorbide Mononitrate (Imdur -) 60 mg PO DAILY [facility] Last Admin: 06/18/17 11:14 Dose: 60 mg Labetalol HCl (Normodyne -) 300 mg PO BID [facility] Last Admin: 06/18/17 22:21 Dose: 300 mg Rosuvastatin Calcium (Crestor -) 20 mg PO DAILY [facility] Last Admin: 06/18/17 11:13 Dose: 20 mg A/P Gastroenteritis resolving Favor Atelectasis over Pneumonia CAD CKD [place] - antibiotics per ID - pt requesting miralax, will order only PRN as he came in with diarrhea - IVF, continue free water replacement - incentive spirometry - CPAP at night - DVT prophylaxis
[2017-06-19] MEDS ORDERED: POLYETHYLENE GLYCOL 3350 119 GM BTL PO PRN ×3 (10:17→16:49)
[2017-06-19] MEDS ORDERED: SODIUM CHLORIDE 0.45% 1,000 ML IV SCH ×2 (10:30→12:20)
[2017-06-19] MEDS ORDERED: ROSUVASTATIN CA 10 MG TABLET (FP) ONE (11:01)
--- NOTE | 2017-06-19 11:10 | EKG ---
Test Reason : Blood Pressure : / mmHG Vent. Rate : 073 BPM Atrial Rate : 073 BPM P-R Int : 214 ms QRS Dur : 112 ms QT Int : 412 ms P-R-T Axes : 029 -47 086 degrees QTc Int : 453 ms SINUS RHYTHM WITH 1ST DEGREE A-V BLOCK LEFT ANTERIOR FASCICULAR BLOCK ABNORMAL ECG WHEN COMPARED WITH ECG OF 17-JUN-2017 19:21, ME INTERVAL HAS INCREASED VENT. RATE HAS DECREASED BY 43 BPM Confirmed by MARIVEL BERNAL MD ([id number]) on 06/19/2017 11:09:44 AM Referred By: Confirmed By:MARIVEL BERNAL MD
[2017-06-19] MEDS: CLOPIDOGREL BISULFATE 75 MG TABLET (FP) PO SCH (11:38)
[2017-06-19] MEDS: ASPIRIN 81 MG CHEWABLE TABLETS PO SCH (11:38)
[2017-06-19] MEDS: ISOSORBIDE MONONITRATE 60 MG TAB.SR.24H (FP) PO SCH (11:39)
[2017-06-19] MEDS: LABETALOL HCL 100 MG TABLET (FP) PO SCH ×2 (11:39→21:30)
[2017-06-19] MEDS: ROSUVASTATIN CA 20 MG TABLET (FP) PO SCH (11:40)
[2017-06-19] MEDS ORDERED: ACETAMINOPHEN 325 MG TABLET (FP) PO PRN ×2 (12:20→16:49)
--- NOTE | 2017-06-19 12:50 | PN ---
Progress Note, Physician History of Present Illness: The patient is a 76 year old male with a significant PMH of colon cancer, diabetes, kidney failure, cardiomegaly, s/p [place] x 2 -->2 stents placed (?2017 in "[place], [place]), CVA, who presents to the emergency department with multiple episodes of nonbloody, nonbilious vomit this morning and chest pain localized in the sterum, nonradiating this evening. The patient reports he took pepto-bismol today. The patient has a fever of 103 here in the ER. The patient states he took two Tylenol PMs and a benadryl two hours before arrival. - Current Medication List Current Medications: Active Medications Acetaminophen (Tylenol -) 650 mg PO Q6H PRN PRN Reason: FEVER Aspirin (Asa -) 81 mg PO DAILY [facility] Cholecalciferol (Vitamin D3 -) 400 unit PO DAILY [facility] Clopidogrel Bisulfate (Plavix -) 75 mg PO DAILY [facility] Cyanocobalamin (Vitamin B12 -) 1,000 mcg PO DAILY [facility] Heparin Sodium (Porcine) (Heparin -) 5,000 unit SQ TID [facility] Levofloxacin (Levaquin 250 Mg Premixed Ivpb -) 250 mg in 50 mls @ 50 mls/hr IVPB DAILY [facility] Sodium Chloride (1/2 Normal Saline) 1,000 mls @ 75 mls/hr IV ASDIR [facility] Insulin Aspart (Novolog Vial Sliding Scale -) 1 vial SQ ACHS [facility] PRN Reason: Protocol Isosorbide Mononitrate (Imdur -) 60 mg PO DAILY [facility] Labetalol HCl (Normodyne -) 300 mg PO BID [facility] Polyethylene Glycol (Miralax (For Daily Use) -) 17 gm PO DAILY [facility] PRN Reason: CONSTIPATION Rosuvastatin Calcium (Crestor -) 20 mg PO DAILY [facility] - Objective Vital Signs: Vital Signs Temperature 98.4 F 06/19/17 06:00 Pulse Rate 74 06/19/17 06:00 Respiratory Rate 20 06/19/17 06:00 Blood Pressure 138/95 06/19/17 06:00 O2 Sat by Pulse Oximetry (%) 98 06/18/17 21:00 Eyes: Yes: WNL, Conjunctiva Clear, EOM Intact HENT: Yes: WNL, Atraumatic, Normocephalic Neck: Yes: WNL, Supple, Trachea Midline Cardiovascular: Yes: WNL, Regular Rate and Rhythm Respiratory: Yes: WNL, Regular, CTA Bilaterally Gastrointestinal: Yes: WNL, Normal Bowel Sounds Genitourinary: Yes: WNL Musculoskeletal: Yes: WNL Extremities: Yes: WNL Edema: No Integumentary: Yes: WNL Neurological: Yes: WNL, Alert, Oriented ...Motor Strength: WNL Psychiatric: Yes: WNL Labs: CBC, BMP 06/19/17 05:35 06/19/17 05:35 INR, PTT INR 1.10 (0.82-1.09) 06/17/17 20:19 Laboratory Tests 06/17/17 06/17/17 06/17/17 19:43 20:01 20:19 WBC 4.1 RBC 4.45 Hgb 12.8 Hct 38.5 MCV 86.5 MCH 28.8 MCHC 33.2 RDW 15.3 Plt Count 157 MPV 9.7 Neutrophils % 90.9 H Lymphocytes % 2.8 L Monocytes % 5.7 Eosinophils % 0.4 Basophils % 0.2 PT with INR INR PTT (Actin FS) VBG pH 7.34 POC VBG pCO2 34.2 L POC VBG pO2 134.0 H Mixed VBG HCO3 18.0 L Sodium Potassium Chloride Carbon Dioxide Anion Gap BUN Creatinine Creat Clearance w eGFR POC Glucometer Random Glucose Hemoglobin A1c % Lactic Acid Calcium Phosphorus Magnesium Total Bilirubin AST ALT Alkaline Phosphatase Troponin I B-Natriuretic Peptide Total Protein Albumin Triglycerides Cholesterol Total LDL Cholesterol HDL Cholesterol Lipase 179 Urine Color Urine Appearance Urine pH Ur Specific [place] Urine Protein Urine Glucose (UA) Urine Ketones Urine Blood Urine Nitrite Urine Bilirubin Urine Urobilinogen Ur Leukocyte Esterase Urine WBC (Auto) Urine RBC (Auto) Urine Bacteria Urine Mucus U Random Total Protein Ur Random Sodium Ur Random Urea Nitrogn Urine Creatinine 06/17/17 06/17/17 06/17/17 20:19 20:19 20:19 WBC RBC Hgb Hct MCV MCH MCHC RDW Plt Count MPV Neutrophils % Lymphocytes % Monocytes % Eosinophils % Basophils % PT with INR 12.40 H INR 1.10 PTT (Actin FS) 32.9 VBG pH POC VBG pCO2 POC VBG pO2 Mixed VBG HCO3 Sodium 151 H Potassium 3.5 Chloride 119 H Carbon Dioxide 23 Anion Gap 9 BUN 50 H Creatinine 3.0 H Creat Clearance w eGFR 20.45 POC Glucometer Random Glucose 181 H Hemoglobin A1c % Lactic Acid 0.9 Calcium 10.0 Phosphorus Magnesium Total Bilirubin 0.7 AST 19 ALT 20 Alkaline Phosphatase 67 Troponin I B-Natriuretic Peptide Total Protein 7.4 Albumin 3.7 Triglycerides Cholesterol Total LDL Cholesterol HDL Cholesterol Lipase Urine Color Urine Appearance Urine pH Ur Specific [place] Urine Protein Urine Glucose (UA) Urine Ketones Urine Blood Urine Nitrite Urine Bilirubin Urine Urobilinogen Ur Leukocyte Esterase Urine WBC (Auto) Urine RBC (Auto) Urine Bacteria Urine Mucus U Random Total Protein Ur Random Sodium Ur Random Urea Nitrogn Urine Creatinine 06/17/17 06/17/17 06/18/17 20:19 21:20 06:15 WBC RBC Hgb Hct MCV MCH MCHC RDW Plt Count MPV Neutrophils % Lymphocytes % Monocytes % Eosinophils % Basophils % PT with INR INR PTT (Actin FS) VBG pH POC VBG pCO2 POC VBG pO2 Mixed VBG HCO3 Sodium Potassium Chloride Carbon Dioxide Anion Gap BUN Creatinine Creat Clearance w eGFR POC Glucometer 164 Random Glucose Hemoglobin A1c % Lactic Acid Calcium Phosphorus Magnesium Total Bilirubin AST ALT Alkaline Phosphatase Troponin I 0.05 B-Natriuretic Peptide Total Protein Albumin Triglycerides Cholesterol Total LDL Cholesterol HDL Cholesterol Lipase Urine Color Ltyellow Urine Appearance Clear Urine pH 5.0 Ur Specific [place] 1.013 Urine Protein 2+ H Urine Glucose (UA) Negative Urine Ketones Trace H Urine Blood 1+ H Urine Nitrite Negative Urine Bilirubin Negative Urine Urobilinogen Negative Ur Leukocyte Esterase Negative Urine WBC (Auto) 4 Urine RBC (Auto) 4 Urine Bacteria Rare Urine Mucus Rare U Random Total Protein Ur Random Sodium Ur Random Urea Nitrogn Urine Creatinine 06/18/17 06/18/17 06/18/17 06:45 06:45 06:45 WBC 4.7 RBC 4.13 Hgb 11.8 Hct 36.3 MCV 87.8 MCH 28.7 MCHC 32.7 RDW 15.3 Plt Count 145 MPV 10.1 Neutrophils % 83.2 H Lymphocytes % 7.9 L D Monocytes % 8.3 Eosinophils % 0.2 Basophils % 0.4 PT with INR INR PTT (Actin FS) VBG pH POC VBG pCO2 POC VBG pO2 Mixed VBG HCO3 Sodium 148 H Potassium 3.9 Chloride 118 H Carbon Dioxide 24 Anion Gap 6 L BUN 50 H Creatinine 2.7 H Creat Clearance w eGFR 23.09 POC Glucometer Random Glucose 156 H Hemoglobin A1c % 7.5 H Lactic Acid Calcium 8.7 Phosphorus 2.6 Magnesium 1.9 Total Bilirubin 0.7 AST 31 D ALT 19 Alkaline Phosphatase 58 Troponin I B-Natriuretic Peptide 3675.83 H Total Protein 6.5 Albumin 3.3 L Triglycerides 148 Cholesterol 103 Total LDL Cholesterol 52 HDL Cholesterol 34 L Lipase Urine Color Urine Appearance Urine pH Ur Specific [place] Urine Protein Urine Glucose (UA) Urine Ketones Urine Blood Urine Nitrite Urine Bilirubin Urine Urobilinogen Ur Leukocyte Esterase Urine WBC (Auto) Urine RBC (Auto) Urine Bacteria Urine Mucus U Random Total Protein Ur Random Sodium Ur Random Urea Nitrogn Urine Creatinine 06/18/17 06/18/17 06/18/17 11:08 11:20 11:20 WBC RBC Hgb Hct MCV MCH MCHC RDW Plt Count MPV Neutrophils % Lymphocytes % Monocytes % Eosinophils % Basophils % PT with INR INR PTT (Actin FS) VBG pH POC VBG pCO2 POC VBG pO2 Mixed VBG HCO3 Sodium Potassium Chloride Carbon Dioxide Anion Gap BUN Creatinine Creat Clearance w eGFR POC Glucometer 172 Random Glucose Hemoglobin A1c % Lactic Acid Calcium Phosphorus Magnesium Total Bilirubin AST ALT Alkaline Phosphatase Troponin I B-Natriuretic Peptide Total Protein Albumin Triglycerides Cholesterol Total LDL Cholesterol HDL Cholesterol Lipase Urine Color Urine Appearance Urine pH Ur Specific [place] Urine Protein Urine Glucose (UA) Urine Ketones Urine Blood Urine Nitrite Urine Bilirubin Urine Urobilinogen Ur Leukocyte Esterase Urine WBC (Auto) Urine RBC (Auto) Urine Bacteria Urine Mucus U Random Total Protein 137 H Ur Random Sodium 62 Ur Random Urea Nitrogn 634 Urine Creatinine 78.8 06/18/17 06/18/17 06/19/17 17:10 22:12 05:19 WBC RBC Hgb Hct MCV MCH MCHC RDW Plt Count MPV Neutrophils % Lymphocytes % Monocytes % Eosinophils % Basophils % PT with INR INR PTT (Actin FS) VBG pH POC VBG pCO2 POC VBG pO2 Mixed VBG HCO3 Sodium Potassium Chloride Carbon Dioxide Anion Gap BUN Creatinine Creat Clearance w eGFR POC Glucometer 112 151 128 Random Glucose Hemoglobin A1c % Lactic Acid Calcium Phosphorus Magnesium Total Bilirubin AST ALT Alkaline Phosphatase Troponin I B-Natriuretic Peptide Total Protein Albumin Triglycerides Cholesterol Total LDL Cholesterol HDL Cholesterol Lipase Urine Color Urine Appearance Urine pH Ur Specific [place] Urine Protein Urine Glucose (UA) Urine Ketones Urine Blood Urine Nitrite Urine Bilirubin Urine Urobilinogen Ur Leukocyte Esterase Urine WBC (Auto) Urine RBC (Auto) Urine Bacteria Urine Mucus U Random Total Protein Ur Random Sodium Ur Random Urea Nitrogn Urine Creatinine 0306/19/17 06/19/17 05:35 05:35 10:43 WBC 4.8 RBC 3.92 L Hgb 11.2 L Hct 34.1 L MCV 87.1 MCH 28.5 MCHC 32.7 RDW 14.8 Plt Count 141 MPV 9.8 Neutrophils % 63.4 D Lymphocytes % 20.7 D Monocytes % 13.6 H Eosinophils % 1.7 D Basophils % 0.6 PT with INR INR PTT (Actin FS) VBG pH POC VBG pCO2 POC VBG pO2 Mixed VBG HCO3 Sodium 149 H Potassium 3.7 Chloride 117 H Carbon Dioxide 20 L Anion Gap 12 BUN 46 H Creatinine 2.6 H Creat Clearance w eGFR 24.12 POC Glucometer Random Glucose 120 H D Hemoglobin A1c % Lactic Acid Calcium 9.8 Phosphorus 2.6 Magnesium 2.2 Total Bilirubin 0.7 AST 32 ALT 21 Alkaline Phosphatase 57 Troponin I 0.76 H* D B-Natriuretic Peptide Total Protein 6.1 L Albumin 2.9 L Triglycerides Cholesterol Total LDL Cholesterol HDL Cholesterol Lipase Urine Color Urine Appearance Urine pH Ur Specific [place] Urine Protein Urine Glucose (UA) Urine Ketones Urine Blood Urine Nitrite Urine Bilirubin Urine Urobilinogen Ur Leukocyte Esterase Urine WBC (Auto) Urine RBC (Auto) Urine Bacteria Urine Mucus U Random Total Protein Ur Random Sodium Ur Random Urea Nitrogn Urine Creatinine Assessment/Plan - Problems (1) Myocardial infarct, old Assessment/Plan: Pt gives hx [place] x 2; coronary stents 2017 in [place]. EKG: NSR; ?old lateral and inferior wall MIs; LVH; LAFB. On ASA and clopidogrel. F/u records. F/u ECHO for LVEF, wall motion. TNI 0.05;increasead to .76 - new onset of cp will transfer to telemetry Chest pain: atypical (at rest; both knifel-like and "ache"; lasted seconds). F/u results of most recent stress test, coronary angiogram. Code(s): I25.2 - OLD MYOCARDIAL INFARCTION (2) Acute gastroenteritis Code(s): K52.9 - NONINFECTIVE GASTROENTERITIS AND COLITIS, UNSPECIFIED (3) History of colon cancer Code(s): Z85.038 - PERSONAL HISTORY OF MALIGNANT NEOPLASM OF LARGE INTESTINE (4) CVA (cerebral vascular accident) Assessment/Plan: hesitant speech; weakness. No head CT available. F/u with neurologist. Code(s): I63.9 - CEREBRAL INFARCTION, UNSPECIFIED (5) Vomiting Assessment/Plan: 1st TNI 0.05. Febrile. F/u with GI, ID. Code(s): R11.10 - VOMITING, UNSPECIFIED (6) Diabetes Code(s): E11.9 - TYPE 2 DIABETES MELLITUS WITHOUT COMPLICATIONS (7) Renal insufficiency Code(s): N28.9 - DISORDER OF KIDNEY AND URETER, UNSPECIFIED (8) HTN (hypertension) Assessment/Plan: on Labetalol. Code(s): I10 - ESSENTIAL (PRIMARY) HYPERTENSION
[2017-06-19] MEDS ORDERED: LABETALOL HCL 100 MG TABLET (FP) PO SCH ×2 (13:45→22:00)
[2017-06-19] MEDS ORDERED: HEPARIN NA (PORCINE) 5,000 UNITS/ML 1ML VIAL SQ SCH ×2 (14:00→22:00)
[2017-06-19] MEDS ORDERED: INSULIN SLIDING SCALE (NOVOLOG) 1 VIAL SQ SCH (16:30)
[2017-06-19] MEDS: SODIUM CHLORIDE 0.45% 1,000 ML IV SCH (17:00)
[2017-06-19] MEDS ORDERED: PT OWN MED DRAWER 7, Y5N ONE (18:05)
--- NOTE | 2017-06-19 19:00 | PN ---
Progress Note (short form) - Note Progress Note: Renal follow up for CKD/Hypernatremia Pt seen and examined at the bedside feels a little better no sob, chest pain had a loose BM this am no fever, chills, N/V/D Vital Signs Temperature 98.2 F 06/19/17 14:50 Pulse Rate 68 06/19/17 14:50 Respiratory Rate 20 06/19/17 14:50 Blood Pressure 117/87 06/19/17 14:50 O2 Sat by Pulse Oximetry (%) 98 06/19/17 09:00 Intake & Output 06/19/17 06/19/17 06/19/17 07:59 15:59 23:59 Intake Total 750 1100 Output Total 500 1000 Balance 250 100 Weight 103.283 kg NAD awake and alert Neck supple RRR CTA obese, NT/ND trace LE edema CBC, BMP 06/19/17 05:35 06/19/17 05:35 Current Medications Acetaminophen (Tylenol -) 650 mg PO Q6H PRN PRN Reason: FEVER Aspirin (Asa -) 81 mg PO DAILY [facility] Cholecalciferol (Vitamin D3 -) 400 unit PO DAILY [facility] Clopidogrel Bisulfate (Plavix -) 75 mg PO DAILY [facility] Cyanocobalamin (Vitamin B12 -) 1,000 mcg PO DAILY [facility] Heparin Sodium (Porcine) (Heparin -) 5,000 unit SQ TID [facility] Levofloxacin (Levaquin 250 Mg Premixed Ivpb -) 250 mg in 50 mls @ 50 mls/hr IVPB DAILY [facility] Sodium Chloride (1/2 Normal Saline) 1,000 mls @ 75 mls/hr IV ASDIR [facility] Last Admin: 06/19/17 17:00 Dose: 75 mls/hr Insulin Aspart (Novolog Vial Sliding Scale -) 1 vial SQ ACHS [facility] PRN Reason: Protocol Isosorbide Mononitrate (Imdur -) 60 mg PO DAILY [facility] Labetalol HCl (Normodyne -) 300 mg PO BID [facility] Minoxidil (Lonitin -) 5 mg PO BID [facility] Polyethylene Glycol (Miralax (For Daily Use) -) 17 gm PO DAILY PRN PRN Reason: CONSTIPATION Rosuvastatin Calcium (Crestor -) 20 mg PO DAILY [facility] 76 year old gentleman with PMhx of CKD stage 4 (he reports secondary to hypertension), Renal Cysts, DM, Colon Ca, IDDM who presented with complaints of N/V w/o diarrehea with fever and found to have BUN/Cr of 50/2.7. #CKD with Azotemia Pt reports baseline Cr ~2.6 would continue hypotonic saline would want to see improvement in BUN and Na levels #Hypernatremia from N/V + diuretics continue 1/2 NS encouraged oral water intake as tolerated #N/V secondary to gastroenteritis Seen by ID on Levaquin supportive care #Hypertension continue minoxdil/labetalol BP is at goal hold diuretics Thank you Fabricio Rodriguez DO
--- NOTE | 2017-06-19 21:06 | PN ---
Progress Note (short form) - Note Progress Note: Discussed troponin result with lab this evening. (+) 0.77, with CK level pending. Initial trop drawn earlier in the day - 0.76. Day team requested heparin gtt (had d/w Cardio prior) if increase in trop level. Discussed case with Dr. Lovell (cardio guest relation officer). Will go ahead and start hep gtt. Will continue to monitor Thank you Miriam Padgett, PGY-1 Night team
[2017-06-19] MEDS ORDERED: HEPARIN NA (PORCINE) 5,000 UNITS/ML 1ML VIAL IVPUSH PRN ×2 (21:15)
[2017-06-19] MEDS: MINOXIDIL 2.5 MG TABLET PO SCH (21:30)
[2017-06-19 22:43] LABS: ANION GAP 7 (8-16); BLOOD UREA NITROGEN 39 mg/dL (7-18); CALCIUM 9.1 mg/dL (8.5-10.1); CHLORIDE 116 mmol/L (98-107); CO2 24 mmol/L (21-32); CREATININE 2.4 mg/dL (0.7-1.3); GLUCOSE,RANDOM 158 mg/dL (74-106); POTASSIUM 3.8 mmol/L (3.5-5.1); SODIUM 147 mmol/L (136-145)
[2017-06-19] MEDS: HEPARIN SOD,PORK IN 0.45% NACL 25,000 UNITS/500 ML INFUS.BAG IVPB SCH (23:03)
--- NOTE | 2017-06-20 06:12 | PN ---
Physical Exam: SUBJECTIVE: Patient seen and examined - Started on heparin gtt overnight per cardiology recs given uptrending trops. febrile to 100.6. c diff ag and toxin neg. Restarted on all home BP meds yesterday. - Complaining of fever, BRYANT in AM; No CP, cough, SOB, N/V, vision changes, dizziness; no further diarrhea; now also complaining of diarrhea, copious urination; not ambulating; PT eval ordered OBJECTIVE: Vital Signs Intake & Output 06/17/17 06/18/17 06/19/17 06/20/17 23:59 23:59 23:59 23:59 Intake Total 1564 2150 Output Total 975 2250 Balance 589 -100 Weight 107.048 kg 102.965 kg 103.283 kg Period Temp Pulse Resp BP Sys/[place] Pulse Ox Last 24 Hr 98.0 F-100.6 F 68-78 18-22 117-182/80-99 97-98 GENERAL: The patient is awake, alert, and fully oriented, NAD, A&Ox3 HEAD: Normal with no signs of trauma. EYES: PERRL, extraocular movements intact, sclera anicteric, conjunctiva clear. No ptosis. ENT: Ears normal, nares patent, oropharynx clear without exudates, moist mucous membranes. NECK: Trachea midline, full range of motion, supple. No JVD noted. LUNGS: Trace bibasilar crackles noted. Good air entry, no wheezing HEART: Regular rate and rhythm, S1, S2 without murmur, rub or gallop. ABDOMEN: Mild abdominal distension. Soft, nontender, normoactive bowel sounds, no guarding, no rebound, no hepatosplenomegaly, no masses. EXTREMITIES: 2+ pulses, warm, well-perfused. 2+ pitting edema to ankles BL NEUROLOGICAL: Cranial nerves II through XII grossly intact. Normal speech, gait not observed. PSYCH: Normal mood, normal affect. Pleasant, stuttering speech SKIN: Warm, dry, normal turgor, no rashes or lesions noted Laboratory Results - last 24 hr CBC, BMP 06/20/17 06:45 06/20/17 06:45 06/19/17 05:35 06/19/17 19:35 06/19/17 06/19/17 06/19/17 05:35 05:35 10:43 WBC 4.8 RBC 3.92 L Hgb 11.2 L Hct 34.1 L MCV 87.1 MCH 28.5 MCHC 32.7 RDW 14.8 Plt Count 141 MPV 9.8 Neutrophils % 63.4 D Lymphocytes % 20.7 D Monocytes % 13.6 H Eosinophils % 1.7 D Basophils % 0.6 Sodium 149 H Potassium 3.7 Chloride 117 H Carbon Dioxide 20 L Anion Gap 12 BUN 46 H Creatinine 2.6 H Creat Clearance w eGFR 24.12 POC Glucometer Random Glucose 120 H D Calcium 9.8 Phosphorus 2.6 Magnesium 2.2 Total Bilirubin 0.7 AST 32 ALT 21 Alkaline Phosphatase 57 Creatine Kinase Creatine Kinase Index CK-MB (CK-2) Troponin I 0.76 H* D Total Protein 6.1 L Albumin 2.9 L 06/19/17 06/19/17 06/19/17 12:06 17:51 19:35 WBC RBC Hgb Hct MCV MCH MCHC RDW Plt Count MPV Neutrophils % Lymphocytes % Monocytes % Eosinophils % Basophils % Sodium 147 H Potassium 3.8 Chloride 116 H Carbon Dioxide 24 Anion Gap 7 L BUN 39 H Creatinine 2.4 H Creat Clearance w eGFR POC Glucometer 147 163 Random Glucose 158 H D Calcium 9.1 Phosphorus Magnesium Total Bilirubin AST ALT Alkaline Phosphatase Creatine Kinase 549 H Creatine Kinase Index 0.5 CK-MB (CK-2) 3.169 Troponin I Total Protein Albumin 06/19/17 06/19/17 19:35 21:33 WBC RBC Hgb Hct MCV MCH MCHC RDW Plt Count MPV Neutrophils % Lymphocytes % Monocytes % Eosinophils % Basophils % Sodium Potassium Chloride Carbon Dioxide Anion Gap BUN Creatinine Creat Clearance w eGFR POC Glucometer 143 Random Glucose Calcium Phosphorus Magnesium Total Bilirubin AST ALT Alkaline Phosphatase Creatine Kinase Creatine Kinase Index CK-MB (CK-2) Troponin I 0.77 H* Total Protein Albumin Active Medications Generic Name Dose Route Start Last Admin Trade Name Freq PRN Reason Stop Dose Admin Acetaminophen 650 mg 06/19/17 16:49 06/20/17 00:42 Tylenol - PO 650 mg Q6H PRN Administration FEVER Aspirin 81 mg 06/20/17 10:00 Asa - PO DAILY [facility] Cholecalciferol 400 unit 06/20/17 10:00 Vitamin D3 - PO DAILY [facility] Clopidogrel Bisulfate 75 mg 06/20/17 10:00 Plavix - PO DAILY [facility] Cyanocobalamin 1,000 mcg 06/20/17 10:00 Vitamin B12 - PO DAILY [facility] Heparin Sodium (Porcine) 1,000 unit 06/19/17 21:15 Heparin - IVPUSH PRN PRN Heparin Heparin Sodium (Porcine) 5,000 unit 06/19/17 21:15 Heparin - IVPUSH PRN PRN Heparin Hydralazine HCl 100 mg 06/20/17 10:00 Apresoline - PO BID [facility] Levofloxacin 250 mg in 50 mls @ 50 mls/hr 06/20/17 10:00 Levaquin 250 Mg Premixed Ivpb - IVPB DAILY [facility] Sodium Chloride 1,000 mls @ 75 mls/hr 06/19/17 16:49 06/19/17 17:00 1/2 Normal Saline IV 75 mls/hr ASDIR [facility] Administration HEPARIN SOD,PORK IN 0.45% NACL 25,000 units in 500 mls @ 20 mls/hr 06/19/17 21 :15 06/19/17 23:03 Heparin-1/2ns 25,000 Units/500 IVPB 1,000 units/hr TITR [facility] 20 mls/hr Protocol Administration 1,000 UNITS/HR Insulin Aspart 1 vial 06/19/17 22:00 06/19/17 21:33 Novolog Vial Sliding Scale - SQ Not Given ACHS [facility] Protocol Isosorbide Mononitrate 60 mg 06/20/17 10:00 Imdur - PO DAILY [facility] Labetalol HCl 300 mg 06/19/17 22:00 06/19/17 21:30 Normodyne - PO 300 mg BID [facility] Administration Minoxidil 5 mg 06/19/17 22:00 06/19/17 21:30 Lonitin - PO 5 mg BID [facility] Administration Polyethylene Glycol 17 gm 06/19/17 16:49 Miralax (For Daily Use) - PO DAILY [facility] Rosuvastatin Calcium 20 mg 06/20/17 10:00 Crestor - PO DAILY [facility] Microbiology 06/17/17 20:10 Blood - Peripheral Venous Blood Culture - Preliminary NO GROWTH OBTAINED AFTER 48 HOURS, INCUBATION TO CONTINUE FOR 3 DAYS. 06/17/17 20:10 Blood - Peripheral Venous Blood Culture - Preliminary NO GROWTH OBTAINED AFTER 48 HOURS, INCUBATION TO CONTINUE FOR 3 DAYS. 06/19/17 12:13 Stool Clostridium difficile Antigen (JODIE) - Final 06/19/17 12:13 Stool Clostridium difficile Toxin Assay - Final 06/19/17 12:13 Stool Norovirus GI - Preliminary 06/19/17 12:13 Stool Norovirus GII - Preliminary 06/17/17 21:20 Urine - Urine - Catheterized Urine Culture - Final NO GROWTH OBTAINED 06/18/17 06:00 Urine For Antigen Detection Legionella Antigen - Final 06/18/17 06:00 Urine For Antigen Detection Streptococcus pneumoniae Antigen (M - Final 06/17/17 21:09 Nasopharyngeal Swab Influenza Types A,B Antigen (JODIE) - Final 06/17/17 21:09 Nasopharyngeal Swab - Final Imaging: CXR 06/17 - Imaging reveals a large heart, unfolded aorta, congestive changes and possible retrocardiac infiltrate. Follow-up recommended. CXR 06/17 - Since 06/17/20172021 hours again is a large heart with unfolded aorta and congestive changes. There may be a left base infiltrate. Follow-up recommended. US abdomen 06/17 - IMPRESSION: Limited study with no definite evidence of acute pathology. Ab/Pelvis CT - IMPRESSION: 1. Cardiomegaly, bibasilar atelectasis and trace pleural effusions. 2. No evidence of acute pathology within the abdomen or pelvis. Please see above discussion. EKG 06/17 - Rate 117, Sinus Tach, LVH, LAD, QTC 475, LAF block EKG 06/19 - Rate 73, Sinus w/ 1st degree block, QTC 453, LAF block, LAD, no ST/ TW changes ECHO 06/19 - EF 53%; LV function mildly reduced, normal size; Biatrial dilatation ; Trace pulm valve regurg; trace TR CXR 06/19 - Cardiomegaly w/ mild congestion ASSESSMENT/PLAN: 76 year old male with a PMH of colon cancer, CAD, s/p 2 stents,CKD stage 4, [place] on BiPap at night, CVA x 2 who presented to the hospital with AMS and increased SOB for the past 2 days. He is admitted to med surg for sepsis due to pneumonia. Started on heparin gtt overnight given slight elevation in trops; now downtrending, likely secondary to demand ischemia combined with poor renal clearance; No further episodes of CP; Likely d/c tomorrow pending cardiac clearance for travel home to [place] #Sepsis due to pneumonia - Bibasilar atelectasis on CT scan; Left lower lobe infiltrate - cont levaquin, day 3. May stop abx tomorrow as clinically non-infectious, negative work-up for pulm/GI infectious source - IVFs - Trend WBC, fever curve - ID consulted, recs appreciated - urine and blood cultures ordered, flu swab negative #R/o NSTEMI - trops peaked at 0.77, repeat 0.55 this AM; likely demand ischemia combined with renal clearance; EKG with no ST/TW abnormalities; ECHO w/ no wall motion abnormalities - Trend trops - Cardiology following - Possible d/c heparin gtt, pending cards recs - Pt refusing LHC; wishes to receive cardiac care at home - Will require cardiac clearance for travel #Heart failure with preserved EF - BNP 3675 -cardiology consulted, recs appreciated -Restart home BP meds -1/2 NS at 75cc per renal recs, as pt with poor PO intake -ECHo results noted -BNP 3700 - Imdur, normodyne; hold bijal/arb for now; prior hx of allergy to BIJAL/ARB per planer operator, Dr. Higuera in [place], [place] #HTN - hypertensive overnight to 180s systolic; did not receive home meds - c/w home htn meds - minoxidil, labetalol, hydralazine; diuretic held per renal rec - Monitor for hypotension #DMII - HGb A1C 7.5 -ISS -BGM ACHS #Diarrhea - no further episodes; Resolved - Norovirus, O+P pending, C diff culture/toxins neg; bacterial panel pending - Contact isolation #Constipation - Miralax prn #CKD stage 4 - Proteinuria; Cr 2.[address] Zan Higuera in [place], [place] - Renal consulted, recs appreciated - avoid nephrotoxic substances - Renal dosing for meds - IVFs - Urine lytes normal - CT ab/pelvis with possible UPJ obstruction -d/c diuretics per renal recs #CAD - plavix, asa - crestor #CLINT[place] - Pulm consulted, recs appreciated - IS - CPAP overnight #Hypernatremia: -low Na diet; 1/2 NS - Trend #F/E/N: 1/2 NS 75 cc Daily lytes Na controlled diet #DVT PPX: Heparin gtt Disposition: MS Plan discussed with attending, Dr. Oliva Hernandez, PGY1 Visit type - Emergency Visit Emergency Visit: Yes ED Registration Date: 06/18/17 Care time: The patient presented to the Emergency Department on the above date and was hospitalized for further evaluation of their emergent condition. - New Patient This patient is new to me today: No - Critical Care Critical Care patient: No
[2017-06-20] MEDS: INSULIN SLIDING SCALE (NOVOLOG) 1 VIAL SQ SCH ×4 (06:32→22:12)
[2017-06-20] MEDS: LABETALOL HCL 100 MG TABLET (FP) PO SCH ×2 (06:33→10:33)
[2017-06-20 07:18] LABS: BASO % 0.8 % (0-2.0); EOS % 3.4 % (0-4.5); HEMATOCRIT 32.4 % (35.4-49); HEMOGLOBIN 10.8 GM/dL (11.7-16.9); LYMPH % 22.6 % (8-40); MCH 28.7 pg (25.7-33.7); MCHC 33.4 g/dl (32.0-35.9); MEAN CELL VOLUME 85.7 fl (80-96); MEAN PLT VOLUME 9.8 fl (7.5-11.1); MONO % 12.9 % (3.8-10.2); NEUT % 60.3 % (42.8-82.8); PLATELET COUNT 133 K/MM3 (134-434); RBC 3.78 M/mm3 (4.00-5.60); RDW 14.7 % (11.9-15.9); WHITE BLOOD COUNT 5.1 K/mm3 (4.0-10.0)
[2017-06-20 07:54] LABS: ALBUMIN 2.9 g/dl (3.4-5.0); ALK PHOS 52 U/L (45-117); ANION GAP 10 (8-16); BILIRUBIN,TOTAL 0.5 mg/dL (0.2-1.0); BLOOD UREA NITROGEN 39 mg/dL (7-18); CALCIUM 9.4 mg/dL (8.5-10.1); CHLORIDE 112 mmol/L (98-107); CO2 23 mmol/L (21-32); CREATININE 2.3 mg/dL (0.7-1.3); GLUCOSE,RANDOM 125 mg/dL (74-106); POTASSIUM 3.6 mmol/L (3.5-5.1); SGOT/AST 37 U/L (15-37); SGPT/ALT 25 U/L (12-78); SODIUM 145 mmol/L (136-145)
[2017-06-20] MEDS ORDERED: ASPIRIN 81 MG CHEWABLE TABLETS PO SCH (10:00)
[2017-06-20] MEDS ORDERED: CYANOCOBALAMIN 1,000 MCG TABLET (FP) PO SCH (10:00)
[2017-06-20] MEDS ORDERED: CHOLECALCIFEROL (VITAMIN D3) 400 UNIT TABLET (FP) PO SCH (10:00)
[2017-06-20] MEDS ORDERED: ISOSORBIDE MONONITRATE 60 MG TAB.SR.24H (FP) PO SCH (10:00)
[2017-06-20] MEDS ORDERED: ROSUVASTATIN CA 20 MG TABLET (FP) PO SCH (10:00)
[2017-06-20] MEDS ORDERED: METOLAZONE 2.5 MG TABLET (FP) PO SCH (10:00)
[2017-06-20] MEDS ORDERED: CLOPIDOGREL BISULFATE 75 MG TABLET (FP) PO SCH (10:00)
[2017-06-20] MEDS: hydrALAZINE HCL 50 MG TABLET (FP) PO SCH ×2 (10:31→21:44)
[2017-06-20] MEDS: ASPIRIN 81 MG CHEWABLE TABLETS PO SCH (10:32)
[2017-06-20] MEDS: ROSUVASTATIN CA 20 MG TABLET (FP) PO SCH (10:32)
[2017-06-20] MEDS: ISOSORBIDE MONONITRATE 60 MG TAB.SR.24H (FP) PO SCH (10:32)
[2017-06-20] MEDS: MINOXIDIL 2.5 MG TABLET PO SCH ×2 (10:33→21:44)
[2017-06-20] MEDS: CLOPIDOGREL BISULFATE 75 MG TABLET (FP) PO SCH (10:34)
[2017-06-20] MEDS: HEPARIN SOD,PORK IN 0.45% NACL 25,000 UNITS/500 ML INFUS.BAG IVPB SCH (10:34)
[2017-06-20] MEDS: CHOLECALCIFEROL (VITAMIN D3) 400 UNIT TABLET (FP) PO SCH (10:34)
[2017-06-20] MEDS: CYANOCOBALAMIN 1,000 MCG TABLET (FP) PO SCH (10:34)
[2017-06-20] MEDS: SODIUM CHLORIDE 0.45% 1,000 ML IV SCH (10:37)
--- NOTE | 2017-06-20 16:51 | PN ---
Teaching Attending Note Name of Resident: Nestor Hernandez ATTENDING PHYSICIAN STATEMENT I saw and evaluated the patient. I reviewed the resident's note and discussed the case with the resident. I agree with the resident's findings and plan as documented. SUBJECTIVE:asymptomatic. no repeat episodes of diarrhea. no recurrent episodes of CP. denies Cp, SOB, fever, chills, cough, N/V/C/D OBJECTIVE: Last Vital Signs Temp Pulse Resp BP Pulse Ox 98.7 F 74 20 143/57 95 06/20/17 14:15 06/20/17 14:15 06/20/17 14:15 06/20/17 14:15 06/20/17 09:00 General NAD, +dysarthric speech CV S1 S2 RRR no murmur/rub/gallop Lungs CTA B/l no wheezing/rales/rhonchi Abdomen soft NT/ND obese ASSESSMENT AND PLAN: 76 yo M with pMHx of CAD, s/p PCI x 2 (last in 2017 per patient), CKD stage IV, CVA, [place] on CPAP, admitted with fevers, nausea, vomiting, diarrhea, and LLL PNA. 1. Sepsis due to suspected LLL PNA vs viral gastroenteritis- clinically improved. initial CXR showing retrocardiac infiltrate. CT showing no infiltrate. symptoms now resolved. stool studies negative for cdiff or infection. on Levaquin day 3. consider stopping abx tomorrow if symptoms fully resolved. ID on board. 2. Tropinemia- Trop peak 0.77. no repeat episodes of CP. no EKG cahnages. echo no WMA. on hep ggt. likley not NSTEMI and mostly demand. awaiting to hear from cardio about stopping drip and if would require further inpatient cardiac workup. pt does NOT want cardiac cath here and would prefer to do all testing back with private doctors in [place]. will wait to speak with cardio. cont asa/ plavix. consider re-starting bumex tomorrow if clinically improves 3. Acute on CKD- baseline Cr 2.6. improving. would stop IVF. 4. Hypernatremia- resolved. d/c IVF. ?LLL PNA/small left pleural effusion 5. CVA with residual dysarthria. at baseline per pt. cont asa/plavix 6. HTN- controlled. 7. DVT ppx- hep ggt 8. PT eval. unclear if pt is agreeable to MANJE[facility]. edy wtih pt and present at bedside. all questions answered. verbalized agreement and understanding.
--- NOTE | 2017-06-20 18:05 | PN ---
Progress Note (short form) - Note Progress Note: Renal follow up for CKD/Hypernatremia Pt seen and examined at the bedside awake and alert asking for CPAP no SOB, chest pain making urine no diarrhea today Vital Signs Temperature 98.7 F 06/20/17 14:15 Pulse Rate 74 06/20/17 14:15 Respiratory Rate 20 06/20/17 14:15 Blood Pressure 143/57 06/20/17 14:15 O2 Sat by Pulse Oximetry (%) 95 06/20/17 09:00 Intake & Output 06/17/17 06/18/17 06/19/17 06/20/17 23:59 23:59 23:59 23:59 Intake Total 1564 2150 1475 Output Total 975 2250 400 Balance 589 -100 1075 Weight 107.048 kg 102.965 kg 103.283 kg 100.335 kg NAD awake and alert Neck supple RRR CTA obese, NT/ND trace LE edema CBC, BMP 06/20/17 06:45 06/20/17 06:45 Current Medications Acetaminophen (Tylenol -) 650 mg PO Q6H PRN PRN Reason: FEVER Last Admin: 06/20/17 00:42 Dose: 650 mg Aspirin (Asa -) 81 mg PO DAILY [facility] Last Admin: 06/20/17 10:32 Dose: 81 mg Cholecalciferol (Vitamin D3 -) 400 unit PO DAILY [facility] Last Admin: 06/20/17 10:34 Dose: 400 unit Clopidogrel Bisulfate (Plavix -) 75 mg PO DAILY [facility] Last Admin: 06/20/17 10:34 Dose: 75 mg Cyanocobalamin (Vitamin B12 -) 1,000 mcg PO DAILY [facility] Last Admin: 06/20/17 10:34 Dose: 1,000 mcg Heparin Sodium (Porcine) (Heparin -) 1,000 unit IVPUSH PRN PRN PRN Reason: Heparin Heparin Sodium (Porcine) (Heparin -) 5,000 unit IVPUSH PRN PRN PRN Reason: Heparin Hydralazine HCl (Apresoline -) 100 mg PO BID [facility] Last Admin: 06/20/17 10:31 Dose: 100 mg Levofloxacin (Levaquin 250 Mg Premixed Ivpb -) 250 mg in 50 mls @ 50 mls/hr IVPB DAILY [facility] Last Admin: 06/20/17 10:32 Dose: 50 mls/hr HEPARIN SOD,PORK IN 0.45% NACL (Heparin-1/2ns 25,000 Units/500) 25,000 units in 500 mls @ 20 mls/hr IVPB TITR [facility]; 1,000 UNITS/HR PRN Reason: Protocol Last Admin: 06/20/17 10:34 Dose: 1,000 units/hr, 20 mls/hr Insulin Aspart (Novolog Vial Sliding Scale -) 1 vial SQ ACHS [facility] PRN Reason: Protocol Last Admin: 06/20/17 17:40 Dose: 2 units Isosorbide Mononitrate (Imdur -) 60 mg PO DAILY [facility] Last Admin: 06/20/17 10:32 Dose: 60 mg Labetalol HCl (Normodyne -) 300 mg PO BID [facility] Last Admin: 06/20/17 10:33 Dose: Not Given Minoxidil (Lonitin -) 5 mg PO BID [facility] Last Admin: 06/20/17 10:33 Dose: 5 mg Polyethylene Glycol (Miralax (For Daily Use) -) 17 gm PO DAILY PRN PRN Reason: CONSTIPATION Rosuvastatin Calcium (Crestor -) 20 mg PO DAILY [facility] Last Admin: 06/20/17 10:32 Dose: 20 mg 76 year old gentleman with PMhx of CKD stage 4 (he reports secondary to hypertension), Renal Cysts, DM, Colon Ca, IDDM who presented with complaints of N/V w/o diarrehea with fever and found to have BUN/Cr of 50/2.7. #CKD with Azotemia Renal function at baseline BUN improving with IVF, would continue IVF for now as pt reports poor oral intake encouraged oral intake of fluids trend renal function no indication for LOT PORTER #Hypernatremia improving with hypotonic IVF #N/V secondary to gastroenteritis Seen by ID on Levaquin supportive care #Hypertension continue minoxdil/labetalol BP is at goal hold diuretics #Hx of [place] CPAP as per primary Thank you Fabricio Rodriguez DO
--- NOTE | 2017-06-20 18:32 | PN ---
Progress Note, Physician Chief Complaint: Pt A&Ox3; had sharp Pt had chest pain when bent over from a semi-reclining position to eat. TNI 0.7-->0.5; CK WNL. History of Present Illness: The patient is a 76 year old male with a significant PMH of colon cancer, diabetes, kidney failure, cardiomegaly, s/p [place] x 2 -->2 stents placed (?2017 in "[place], [place]), CVA, who presents to the emergency department with multiple episodes of nonbloody, nonbilious vomit this morning and chest pain localized in the sterum, nonradiating this evening. The patient reports he took pepto-bismol today. The patient has a fever of 103 here in the ER. The patient states he took two Tylenol PMs and a benadryl two hours before arrival. - Current Medication List Current Medications: Active Medications Acetaminophen (Tylenol -) 650 mg PO Q6H PRN PRN Reason: FEVER Last Admin: 06/20/17 00:42 Dose: 650 mg Aspirin (Asa -) 81 mg PO DAILY [facility] Last Admin: 06/20/17 10:32 Dose: 81 mg Cholecalciferol (Vitamin D3 -) 400 unit PO DAILY [facility] Last Admin: 06/20/17 10:34 Dose: 400 unit Clopidogrel Bisulfate (Plavix -) 75 mg PO DAILY [facility] Last Admin: 06/20/17 10:34 Dose: 75 mg Cyanocobalamin (Vitamin B12 -) 1,000 mcg PO DAILY [facility] Last Admin: 06/20/17 10:34 Dose: 1,000 mcg Heparin Sodium (Porcine) (Heparin -) 1,000 unit IVPUSH PRN PRN PRN Reason: Heparin Heparin Sodium (Porcine) (Heparin -) 5,000 unit IVPUSH PRN PRN PRN Reason: Heparin Hydralazine HCl (Apresoline -) 100 mg PO BID [facility] Last Admin: 06/20/17 10:31 Dose: 100 mg Levofloxacin (Levaquin 250 Mg Premixed Ivpb -) 250 mg in 50 mls @ 50 mls/hr IVPB DAILY [facility] Last Admin: 06/20/17 10:32 Dose: 50 mls/hr HEPARIN SOD,PORK IN 0.45% NACL (Heparin-1/2ns 25,000 Units/500) 25,000 units in 500 mls @ 20 mls/hr IVPB TITR [facility]; 1,000 UNITS/HR PRN Reason: Protocol Last Admin: 06/20/17 10:34 Dose: 1,000 units/hr, 20 mls/hr Insulin Aspart (Novolog Vial Sliding Scale -) 1 vial SQ ACHS [facility] PRN Reason: Protocol Last Admin: 06/20/17 17:40 Dose: 2 units Isosorbide Mononitrate (Imdur -) 60 mg PO DAILY [facility] Last Admin: 06/20/17 10:32 Dose: 60 mg Labetalol HCl (Normodyne -) 300 mg PO BID [facility] Last Admin: 06/20/17 10:33 Dose: Not Given Minoxidil (Lonitin -) 5 mg PO BID [facility] Last Admin: 06/20/17 10:33 Dose: 5 mg Polyethylene Glycol (Miralax (For Daily Use) -) 17 gm PO DAILY PRN PRN Reason: CONSTIPATION Rosuvastatin Calcium (Crestor -) 20 mg PO DAILY [facility] Last Admin: 06/20/17 10:32 Dose: 20 mg - Objective Vital Signs: Vital Signs Temperature 98.7 F 06/20/17 14:15 Pulse Rate 74 06/20/17 14:15 Respiratory Rate 20 06/20/17 14:15 Blood Pressure 143/57 06/20/17 14:15 O2 Sat by Pulse Oximetry (%) 95 06/20/17 09:00 Constitutional: Yes: Anxious Labs: CBC, BMP 06/20/17 06:45 06/20/17 06:45 INR, PTT INR 1.10 (0.82-1.09) 06/17/17 20:19 Problem List - Problems (1) Myocardial infarct, old Assessment/Plan: Pt gives hx [place] x 2; coronary stents 2017 in [place]. EKG: NSR; ?old lateral and inferior wall MIs; LVH; LAFB. On ASA and clopidogrel. F/u records. F/u ECHO for LVEF, wall motion. TNI 0.05-->7-->5.5; CK /MB relative indexx low. Chest pain: atypical (at rest; both knifel-like and "ache"; lasted seconds). F/u results of most recent stress test, coronary angiogram. (Problematic repeating angiogram presently, given renal dysfunction; in any case , pt refuses to consider repeating this procedure). Code(s): I25.2 - OLD MYOCARDIAL INFARCTION (2) Acute gastroenteritis Code(s): K52.9 - NONINFECTIVE GASTROENTERITIS AND COLITIS, UNSPECIFIED (3) History of colon cancer Code(s): Z85.038 - PERSONAL HISTORY OF MALIGNANT NEOPLASM OF LARGE INTESTINE (4) CVA (cerebral vascular accident) Assessment/Plan: hesitant speech; weakness. No head CT available. F/u with neurologist. Code(s): I63.9 - CEREBRAL INFARCTION, UNSPECIFIED (5) Vomiting Assessment/Plan: 1st TNI 0.05. Febrile. F/u with GI, ID. Code(s): R11.10 - VOMITING, UNSPECIFIED (6) Diabetes Code(s): E11.9 - TYPE 2 DIABETES MELLITUS WITHOUT COMPLICATIONS (7) Renal insufficiency Assessment/Plan: Cr 2.7-->2.3 Code(s): N28.9 - DISORDER OF KIDNEY AND URETER, UNSPECIFIED (8) HTN (hypertension) Assessment/Plan: on Labetalol. Code(s): I10 - ESSENTIAL (PRIMARY) HYPERTENSION (9) Systolic CHF Assessment/Plan: mildly reduced LVEF by ECHO. CHange labetolol to carvedilol 25 mg bid; f/u BP and HR. Code(s): I50.20 - UNSPECIFIED SYSTOLIC (CONGESTIVE) HEART FAILURE
[2017-06-20] MEDS ORDERED: INSULIN (NOVOLOG) ASPART 100 UNITS/ML 10ML VIAL ONE (21:34)
[2017-06-20] MEDS: CARVEDILOL 25 MG TABLET (FP) PO SCH (21:44)
--- NOTE | 2017-06-21 06:07 | PN ---
Physical Exam: SUBJECTIVE: Patient seen and examined by me - No major events; Hypertensive to 160s systolic overnight; stable, afebrile; d/ c'ed IV fluids; No pain, good appetite; heparin gtt d/c'ed overnight - Denies f/c/n/v/d, no cough, sob, ab pain, back pain, le swelling, focal neurologic deficits; States that new medication regimen seems to have helped BP ; Per nursing, was not planning on coming to hospital to filler picker pt today if discharged; Still no BM yet OBJECTIVE: Vital Signs Intake & Output 06/18/17 06/19/17 06/20/17 06/21/17 23:59 23:59 23:59 23:59 Intake Total 1564 2150 1725 Output Total 975 2250 1200 Balance 589 -100 525 Weight 102.965 kg 103.283 kg 100.335 kg Period Temp Pulse Resp BP Sys/Segovia Pulse Ox Last 24 Hr 98.0 F-99.4 F 70-89 18-20 143-166/57-92 95-98 GENERAL: Elderly man, NAD, A&Ox3 HEAD: Normal with no signs of trauma. EYES: PERRL, extraocular movements intact, sclera anicteric, conjunctiva clear. No ptosis. ENT: Ears normal, nares patent, oropharynx clear without exudates, moist mucous membranes. NECK: Trachea midline, full range of motion, supple. No JVD noted. LUNGS: CTABL. Good air entry, no wheezing HEART: Regular rate and rhythm, S1, S2 without murmur, rub or gallop. ABDOMEN: Still w/ mild abdominal distension. Soft, nontender, hypoactive bowel sounds, no guarding, no rebound, no hepatosplenomegaly, no masses. EXTREMITIES: 2+ pulses, warm, well-perfused. 2+ pitting edema to ankles BL still NEUROLOGICAL: Cranial nerves II through XII grossly intact. Normal speech, gait not observed. PSYCH: Normal mood, normal affect. Pleasant w/ stuttering speech SKIN: Warm, dry, normal turgor, no rashes or lesions noted Laboratory Results - last 24 hr CBC, BMP CBC, BMP 06/21/17 05:00 06/21/17 05:00 06/20/17 06:45 06/20/17 06:45 06/20/17 06/20/1718 06:26 06:45 06:45 WBC 5.1 RBC 3.78 L Hgb 10.8 L Hct 32.4 L MCV 85.7 MCH 28.7 MCHC 33.4 RDW 14.7 Plt Count 133 L MPV 9.8 Neutrophils % 60.3 Lymphocytes % 22.6 Monocytes % 12.9 H Eosinophils % 3.4 D Basophils % 0.8 PTT (Actin FS) 62.4 H D Sodium Potassium Chloride Carbon Dioxide Anion Gap BUN Creatinine Creat Clearance w eGFR POC Glucometer 141 Random Glucose Calcium Total Bilirubin AST ALT Alkaline Phosphatase Troponin I Total Protein Albumin 06/20/17 06/20/17 06/20/17 06:45 06:45 12:32 WBC RBC Hgb Hct MCV MCH MCHC RDW Plt Count MPV Neutrophils % Lymphocytes % Monocytes % Eosinophils % Basophils % PTT (Actin FS) Sodium 145 Potassium 3.6 Chloride 112 H Carbon Dioxide 23 Anion Gap 10 BUN 39 H Creatinine 2.3 H Creat Clearance w eGFR 27.78 POC Glucometer 182 Random Glucose 125 H D Calcium 9.4 Total Bilirubin 0.5 D AST 37 ALT 25 Alkaline Phosphatase 52 Troponin I 0.55 H Cancelled Total Protein 6.0 L Albumin 2.9 L 06/20/17 06/20/17 06/21/17 17:39 22:05 05:35 WBC RBC Hgb Hct MCV MCH MCHC RDW Plt Count MPV Neutrophils % Lymphocytes % Monocytes % Eosinophils % Basophils % PTT (Actin FS) Sodium Potassium Chloride Carbon Dioxide Anion Gap BUN Creatinine Creat Clearance w eGFR POC Glucometer 154 188 156 Random Glucose Calcium Total Bilirubin AST ALT Alkaline Phosphatase Troponin I Total Protein Albumin Active Medications Generic Name Dose Route Start Last Admin Trade Name Freq PRN Reason Stop Dose Admin Acetaminophen 650 mg 06/19/17 16:49 06/20/17 00:42 Tylenol - PO 650 mg Q6H PRN Administration FEVER Aspirin 81 mg 06/20/17 10:00 06/20/17 10:32 Asa - PO 81 mg DAILY VIVI Administration Carvedilol 25 mg 06/20/17 22:00 06/20/17 21:44 Coreg - PO 25 mg BID VIVI Administration Cholecalciferol 400 unit 06/20/17 10:00 06/20/17 10:34 Vitamin D3 - PO 400 unit DAILY VIVI Administration Clopidogrel Bisulfate 75 mg 06/20/17 10:00 06/20/17 10:34 Plavix - PO 75 mg DAILY VIVI Administration Cyanocobalamin 1,000 mcg 06/20/17 10:00 06/20/17 10:34 Vitamin B12 - PO 1,000 mcg DAILY VIVI Administration Heparin Sodium (Porcine) 1,000 unit 06/19/17 21:15 Heparin - IVPUSH PRN PRN Heparin Heparin Sodium (Porcine) 5,000 unit 06/19/17 21:15 Heparin - IVPUSH PRN PRN Heparin Hydralazine HCl 100 mg 06/20/17 10:00 06/20/17 21:44 Apresoline - PO 100 mg BID VIVI Administration Levofloxacin 250 mg in 50 mls @ 50 mls/hr 06/20/17 10:00 06/20/17 10:32 Levaquin 250 Mg Premixed Ivpb - IVPB 50 mls/hr DAILY VIVI Administration Insulin Aspart 1 vial 06/19/17 22:00 06/20/17 22:12 Novolog Vial Sliding Scale - SQ 2 units ACHS VIVI Administration Protocol Isosorbide Mononitrate 60 mg 06/20/17 10:00 06/20/17 10:32 Imdur - PO 60 mg DAILY VIVI Administration Minoxidil 5 mg 06/19/17 22:00 06/20/17 21:44 Lonitin - PO 5 mg BID VIVI Administration Polyethylene Glycol 17 gm 06/19/17 16:49 Miralax (For Daily Use) - PO DAILY PRN CONSTIPATION Rosuvastatin Calcium 20 mg 06/20/17 10:00 06/20/17 10:32 Crestor - PO 20 mg DAILY VIVI Administration Microbiology 06/17/17 20:10 Blood - Peripheral Venous Blood Culture - Preliminary NO GROWTH OBTAINED AFTER 72 HOURS, INCUBATION TO CONTINUE FOR 2 DAYS. 06/17/17 20:10 Blood - Peripheral Venous Blood Culture - Preliminary NO GROWTH OBTAINED AFTER 72 HOURS, INCUBATION TO CONTINUE FOR 2 DAYS. 06/19/17 12:13 Stool Salmonella/Shigella Culture - Preliminary NO ENTERIC PATHOGENS, 24 HOURS, ON PRIMARY PLATES 06/19/17 12:13 Stool Campylobacter Culture - Preliminary NO ENTERIC PATHOGENS, 24 HOURS, ON PRIMARY PLATES 06/19/17 12:13 Stool Yersinia Culture - Preliminary NO ENTERIC PATHOGENS, 24 HOURS, ON PRIMARY PLATES 06/19/17 12:13 Stool Vibrio Culture - Final NO GROWTH OF VIBRIO SPECIES OBTAINED 06/19/17 12:13 Stool Escherichia coli 0157 Culture - Final NO GROWTH OF E COLI 0157 OBTAINED 06/19/17 12:13 Stool Clostridium difficile Antigen (JODIE) - Final 06/19/17 12:13 Stool Clostridium difficile Toxin Assay - Final 06/19/17 12:13 Stool Norovirus GI - Preliminary 06/19/17 12:13 Stool Norovirus GII - Preliminary 06/17/17 21:20 Urine - Urine - Catheterized Urine Culture - Final NO GROWTH OBTAINED 06/18/17 06:00 Urine For Antigen Detection Legionella Antigen - Final 06/18/17 06:00 Urine For Antigen Detection Streptococcus pneumoniae Antigen (M - Final 06/17/17 21:09 Nasopharyngeal Swab Influenza Types A,B Antigen (JODIE) - Final 06/17/17 21:09 Nasopharyngeal Swab - Final Imaging: CXR 06/17 - Imaging reveals a large heart, unfolded aorta, congestive changes and possible retrocardiac infiltrate. Follow-up recommended. CXR 06/17 - Since 06/17/20172021 hours again is a large heart with unfolded aorta and congestive changes. There may be a left base infiltrate. Follow-up recommended. US abdomen 06/17 - IMPRESSION: Limited study with no definite evidence of acute pathology. Ab/Pelvis CT - IMPRESSION: 1. Cardiomegaly, bibasilar atelectasis and trace pleural effusions. 2. No evidence of acute pathology within the abdomen or pelvis. Please see above discussion. EKG 06/17 - Rate 117, Sinus Tach, LVH, LAD, QTC 475, LAF block EKG 06/19 - Rate 73, Sinus w/ 1st degree block, QTC 453, LAF block, LAD, no ST/ TW changes ECHO 06/19 - EF 53%; LV function mildly reduced, normal size; Biatrial dilatation ; Trace pulm valve regurg; trace TR CXR 06/19 - Cardiomegaly w/ mild congestion Renal U/s 06/20 - BL renal cysts. No evidence of hydro or obstructive uropathy ASSESSMENT/PLAN: 76 year old male with a PMH of colon cancer, CAD, s/p 2 stents,CKD stage 4, [place] on BiPap at night, CVA x 2 who presented to the hospital with AMS and increased SOB for the past 2 days. He is admitted to med surg for sepsis due to pneumonia. Started on heparin gtt overnight given slight elevation in trops; now downtrending, likely secondary to demand ischemia combined with poor renal clearance; No further episodes of CP; Likely d/c tomorrow pending cardiac clearance for travel home to [place] #Sepsis due to pneumonia - Bibasilar atelectasis on CT scan; Left lower lobe infiltrate - cont levaquin, day 3. May stop abx tomorrow as clinically non-infectious, negative work-up for pulm/GI infectious source - IVFs - Trend WBC, fever curve - ID consulted, recs appreciated - urine and blood cultures ordered, flu swab negative #R/o NSTEMI - trops peaked at 0.77, repeat 0.55 this AM; likely demand ischemia combined with renal clearance; EKG with no ST/TW abnormalities; ECHO w/ no wall motion abnormalities - Trend trops - Cardiology following - Possible d/c heparin gtt, pending cards recs - Pt refusing LHC; wishes to receive cardiac care at home - Will require cardiac clearance for travel #Heart failure with preserved EF - BNP 3675 -cardiology consulted, recs appreciated -Restart home BP meds -1/2 NS at 75cc per renal recs, as pt with poor PO intake -ECHo results noted -BNP 3700 - Imdur, normodyne; hold bijal/arb for now; prior hx of allergy to BIJAL/ARB per local owner operator truck driver, Dr. Higuera in [place], [place] #HTN - hypertensive overnight to 180s systolic; did not receive home meds - c/w home htn meds - minoxidil, labetalol, hydralazine; diuretic held per renal rec - Monitor for hypotension #DMII - HGb A1C 7.5 -ISS -BGM ACHS #Diarrhea - no further episodes; Resolved - Norovirus, O+P pending, C diff culture/toxins neg; bacterial panel pending - Contact isolation #Constipation - Miralax prn #CKD stage 4 - Proteinuria; Cr 2.[address] Zan Higuera in [place], [place] - Renal consulted, recs appreciated - avoid nephrotoxic substances - Renal dosing for meds - IVFs - Urine lytes normal - CT ab/pelvis with possible UPJ obstruction -d/c diuretics per renal recs #CAD - plavix, asa - crestor #CLINTON - Pulm consulted, recs appreciated - IS - CPAP overnight #Hypernatremia: -low Na diet; 1/2 NS - Trend #F/E/N: 1/2 NS 75 cc Daily lytes Na controlled diet #DVT PPX: Heparin gtt Disposition: MS Plan discussed with attending, Dr. Oliva Hernandez, PGY1
[2017-06-21] MEDS: INSULIN SLIDING SCALE (NOVOLOG) 1 VIAL SQ SCH ×2 (06:10→12:03)
[2017-06-21 07:12] LABS: HEMATOCRIT 34.5 % (35.4-49); HEMOGLOBIN 11.6 GM/dL (11.7-16.9); MCH 28.7 pg (25.7-33.7); MCHC 33.5 g/dl (32.0-35.9); MEAN CELL VOLUME 85.8 fl (80-96); PLATELET COUNT 159 K/MM3 (134-434); RBC 4.02 M/mm3 (4.00-5.60); RDW 14.8 % (11.9-15.9); WHITE BLOOD COUNT 4.6 K/mm3 (4.0-10.0)
[2017-06-21 07:21] LABS: INR 1.04 (0.82-1.09); PROTHROMBIN TIME (PATIENT) 11.7 SEC (9.98-11.88)
[2017-06-21 07:39] LABS: ALBUMIN 2.9 g/dl (3.4-5.0); ANION GAP 8 (8-16); BILIRUBIN,TOTAL 0.4 mg/dL (0.2-1.0); BLOOD UREA NITROGEN 37 mg/dL (7-18); CALCIUM 9.8 mg/dL (8.5-10.1); CHLORIDE 112 mmol/L (98-107); CO2 25 mmol/L (21-32); CREATININE 2.2 mg/dL (0.7-1.3); GLUCOSE,RANDOM 147 mg/dL (74-106); PHOSPHOROUS 2.4 mg/dL (2.5-4.9); POTASSIUM 4.1 mmol/L (3.5-5.1); SGOT/AST 39 U/L (15-37); SGPT/ALT 27 U/L (12-78); SODIUM 145 mmol/L (136-145); TOT PROT 6.3 g/dl (6.4-8.2)
[2017-06-21 07:40] LABS: ALK PHOS 56 U/L (45-117)
[2017-06-21] MEDS ORDERED: POLYETHYLENE GLYCOL 3350 119 GM BTL PO SCH (10:00)
[2017-06-21] MEDS: ASPIRIN 81 MG CHEWABLE TABLETS PO SCH (11:09)
[2017-06-21] MEDS: hydrALAZINE HCL 50 MG TABLET (FP) PO SCH (11:09)
[2017-06-21] MEDS: ISOSORBIDE MONONITRATE 60 MG TAB.SR.24H (FP) PO SCH (11:10)
[2017-06-21] MEDS: ROSUVASTATIN CA 20 MG TABLET (FP) PO SCH (11:10)
[2017-06-21] MEDS: CARVEDILOL 25 MG TABLET (FP) PO SCH (11:10)
[2017-06-21] MEDS: CLOPIDOGREL BISULFATE 75 MG TABLET (FP) PO SCH (11:11)
[2017-06-21] MEDS: MINOXIDIL 2.5 MG TABLET PO SCH (11:11)
[2017-06-21] MEDS: CYANOCOBALAMIN 1,000 MCG TABLET (FP) PO SCH (11:12)
[2017-06-21] MEDS: CHOLECALCIFEROL (VITAMIN D3) 400 UNIT TABLET (FP) PO SCH (11:12)
[2017-06-21] MEDS ORDERED: NAPH,MB-DB/K PH,MBDB POWDER PACKET PO SCH (12:00)
--- NOTE | 2017-06-21 12:51 | PN ---
Teaching Attending Note Name of Resident: Nestor Hernandez ATTENDING PHYSICIAN STATEMENT I saw and evaluated the patient. I reviewed the resident's note and discussed the case with the resident. I agree with the resident's findings and plan as documented. SUBJECTIVE:asymptomatic. no repeat episode of CP. denies fever, chills, cough, N /V/C/D. tolerating diet OBJECTIVE: Last Vital Signs Temp Pulse Resp BP Pulse Ox 98.8 F 79 18 137/74 98 06/21/17 05:00 06/21/17 05:00 06/21/17 05:00 06/21/17 05:00 06/20/17 21:00 General NAD, +dysarthric speech CV S1 S2 RRR no murmur/rub/gallop Lungs CTA B/l no wheezing/rales/rhonchi Abdomen soft NT/ND obese ASSESSMENT AND PLAN: 76 yo M with pMHx of CAD, s/p PCI x 2 (last in 2017 per patient), CKD stage IV, CVA, [place] on CPAP, admitted with fevers, nausea, vomiting, diarrhea, and LLL PNA. 1. Sepsis due to suspected LLL PNA vs viral gastroenteritis- clinically improved. no leukocytosis or fevers. Cx all negative. received 4 days of levaquin. will d/c abx at this time as likely not bacterial and symptoms have resolved. 2. Tropinemia- Trop peak 0.77. no repeat episodes. hep ggt d/c. should have cardiac workup but pt requesting workup be done in [place] by private property valuer. labetolol switched to coreg. can up titrate as tolerated. re- start bumex as tolerating po. resume all home meds. 3. Acute on CKD- baseline Cr 2.6. improved from baseline 4. Hypernatremia- resolved. ?LLL PNA/small left pleural effusion 5. CVA with residual dysarthria. at baseline per pt. cont asa/plavix 6. HTN- controlled. 7. DVT ppx- hep ggt 8.d/c home today. understands to follow up [facility] property valuer once returns to [place]
--- NOTE | 2017-06-21 13:05 | PN ---
Progress Note (short form) - Note Progress Note: Renal follow up for CKD/Hypernatremia Pt seen and examined at the bedside awake and alert no acute complaints no sob, chest pain, abd pain Vital Signs Temperature 98.8 F 06/21/17 05:00 Pulse Rate 79 06/21/17 05:00 Respiratory Rate 18 06/21/17 05:00 Blood Pressure 137/74 06/21/17 05:00 O2 Sat by Pulse Oximetry (%) 98 06/20/17 21:00 Intake & Output 06/18/17 06/19/17 06/20/17 06/21/17 23:59 23:59 23:59 23:59 Intake Total 1564 2150 1725 190 Output Total 975 2250 1200 150 Balance 589 -100 525 40 Weight 102.965 kg 103.283 kg 100.335 kg 99.518 kg NAD awake and alert Neck supple RRR CTA obese, NT/ND trace LE edema CBC, BMP 06/21/17 05:00 06/21/17 05:00 Current Medications Acetaminophen (Tylenol -) 650 mg PO Q6H PRN PRN Reason: FEVER Last Admin: 06/20/17 00:42 Dose: 650 mg Aspirin (Asa -) 81 mg PO DAILY [facility] Last Admin: 06/21/17 11:09 Dose: 81 mg Carvedilol (Coreg -) 25 mg PO BID [facility] Last Admin: 06/21/17 11:10 Dose: 25 mg Cholecalciferol (Vitamin D3 -) 400 unit PO DAILY [facility] Last Admin: 06/21/17 11:12 Dose: 400 unit Clopidogrel Bisulfate (Plavix -) 75 mg PO DAILY [facility] Last Admin: 06/21/17 11:11 Dose: 75 mg Cyanocobalamin (Vitamin B12 -) 1,000 mcg PO DAILY [facility] Last Admin: 06/21/17 11:12 Dose: 1,000 mcg Heparin Sodium (Porcine) (Heparin -) 1,000 unit IVPUSH PRN PRN PRN Reason: Heparin Heparin Sodium (Porcine) (Heparin -) 5,000 unit IVPUSH PRN PRN PRN Reason: Heparin Hydralazine HCl (Apresoline -) 100 mg PO BID [facility] Last Admin: 06/21/17 11:09 Dose: 100 mg Levofloxacin (Levaquin 250 Mg Premixed Ivpb -) 250 mg in 50 mls @ 50 mls/hr IVPB DAILY [facility] Last Admin: 06/21/17 11:10 Dose: 50 mls/hr Insulin Aspart (Novolog Vial Sliding Scale -) 1 vial SQ ACHS [facility] PRN Reason: Protocol Last Admin: 06/21/17 12:03 Dose: 6 units Isosorbide Mononitrate (Imdur -) 60 mg PO DAILY [facility] Last Admin: 06/21/17 11:10 Dose: 60 mg Minoxidil (Lonitin -) 5 mg PO BID [facility] Last Admin: 06/21/17 11:11 Dose: 5 mg Polyethylene Glycol (Miralax (For Daily Use) -) 17 gm PO DAILY [facility] Last Admin: 06/21/17 11:59 Dose: Not Given Potassium Phos/Sodium Phos (Phos-Nak Packet -) 1 packet PO BID [facility] Stop: 06/21/17 22:01 Last Admin: 06/21/17 12:11 Dose: 1 packet Rosuvastatin Calcium (Crestor -) 20 mg PO DAILY [facility] Last Admin: 06/21/17 11:10 Dose: 20 mg 76 year old gentleman with PMhx of CKD stage 4 (he reports secondary to hypertension), Renal Cysts, DM, Colon Ca, IDDM who presented with complaints of N/V w/o diarrehea with fever and found to have BUN/Cr of 50/2.7. #CKD with Azotemia Renal function improve and stable off IVF stable for discharge with follow up with primary formula checker as outpatient continue diuretics as outpatient as long is pt is tolerating oral diet and no further diarrhea Thank you Fabricio Rodriguez DO
[2017-06-21 13:18] VITALS: BP 146/74; PULSE 80; TEMP 97.3
--- NOTE | 2017-06-21 17:02 | DS ---
Physical Exam: SUBJECTIVE: Patient seen and examined - No major events; Hypertensive to 160s systolic overnight; stable, afebrile; d/ c'ed IV fluids; No pain, good appetite; heparin gtt d/c'ed overnight - Denies f/c/n/v/d, no cough, sob, ab pain, back pain, le swelling, focal neurologic deficits; States that new medication regimen seems to have helped BP ; Per nursing, was not planning on coming to hospital to pickle maker pt today if discharged; Still no BM yet OBJECTIVE: Vital Signs Intake & Output 06/18/17 06/19/17 06/20/17 06/21/17 23:59 23:59 23:59 23:59 Intake Total 1564 2150 1725 190 Output Total 975 2250 1200 150 Balance 589 -100 525 40 Weight 102.965 kg 103.283 kg 100.335 kg 99.518 kg Period Temp Pulse Resp BP Sys/Seg[place]ia Pulse Ox Last 24 Hr 97.3 F-99.4 F 75-89 18-20 137-166/74-92 98 PHYSICAL EXAM GENERAL: Elderly man, NAD, A&Ox3 HEAD: Normal with no signs of trauma. EYES: PERRL, extraocular movements intact, sclera anicteric, conjunctiva clear. No ptosis. ENT: Ears normal, nares patent, oropharynx clear without exudates, moist mucous membranes. NECK: Trachea midline, full range of motion, supple. No JVD noted. LUNGS: CTABL. Good air entry, no wheezing HEART: Regular rate and rhythm, S1, S2 without murmur, rub or gallop. ABDOMEN: Still w/ mild abdominal distension. Soft, nontender, hypoactive bowel sounds, no guarding, no rebound, no hepatosplenomegaly, no masses. EXTREMITIES: 2+ pulses, warm, well-perfused. 2+ pitting edema to ankles BL still NEUROLOGICAL: Cranial nerves II through XII grossly intact. Normal speech, gait not observed. PSYCH: Normal mood, normal affect. Pleasant w/ stuttering speech SKIN: Warm, dry, normal turgor, no rashes or lesions noted LABS Laboratory Results - last 24 hr CBC, BMP 06/21/17 05:00 06/21/17 05:00 06/20/17 06/20/17 06/21/17 17:39 22:05 05:00 WBC 4.6 RBC 4.02 Hgb 11.6 L Hct 34.5 L MCV 85.8 MCH 28.7 MCHC 33.5 RDW 14.8 Plt Count 159 MPV 10.0 PT with INR INR PTT (Actin FS) Sodium Potassium Chloride Carbon Dioxide Anion Gap BUN Creatinine Creat Clearance w eGFR POC Glucometer 154 188 Random Glucose Calcium Phosphorus Magnesium Total Bilirubin AST ALT Alkaline Phosphatase Total Protein Albumin Stool Occult Blood 06/21/17 06/21/17 06/21/17 05:00 05:00 05:00 WBC RBC Hgb Hct MCV MCH MCHC RDW Plt Count MPV PT with INR 11.70 INR 1.04 PTT (Actin FS) 32.3 D Sodium 145 Potassium 4.1 Chloride 112 H Carbon Dioxide 25 Anion Gap 8 BUN 37 H Creatinine 2.2 H Creat Clearance w eGFR 29.25 POC Glucometer Random Glucose 147 H Calcium 9.8 Phosphorus 2.4 L Magnesium 2.0 Total Bilirubin 0.4 AST 39 H ALT 27 Alkaline Phosphatase 56 Total Protein 6.3 L Albumin 2.9 L Stool Occult Blood 06/21/17 06/21/17 06/21/17 05:35 09:30 12:02 WBC RBC Hgb Hct MCV MCH MCHC RDW Plt Count MPV PT with INR INR PTT (Actin FS) Sodium Potassium Chloride Carbon Dioxide Anion Gap BUN Creatinine Creat Clearance w eGFR POC Glucometer 156 258 Random Glucose Calcium Phosphorus Magnesium Total Bilirubin AST ALT Alkaline Phosphatase Total Protein Albumin Stool Occult Blood Negative Microbiology 06/17/17 20:10 Blood - Peripheral Venous Blood Culture - Preliminary NO GROWTH OBTAINED AFTER 72 HOURS, INCUBATION TO CONTINUE FOR 2 DAYS. 06/17/17 20:10 Blood - Peripheral Venous Blood Culture - Preliminary NO GROWTH OBTAINED AFTER 72 HOURS, INCUBATION TO CONTINUE FOR 2 DAYS. 06/19/17 12:13 Stool Salmonella/Shigella Culture - Preliminary NO ENTERIC PATHOGENS, 24 HOURS, ON PRIMARY PLATES 06/19/17 12:13 Stool Campylobacter Culture - Preliminary NO ENTERIC PATHOGENS, 24 HOURS, ON PRIMARY PLATES 06/19/17 12:13 Stool Yersinia Culture - Preliminary NO ENTERIC PATHOGENS, 24 HOURS, ON PRIMARY PLATES 06/19/17 12:13 Stool Vibrio Culture - Final NO GROWTH OF VIBRIO SPECIES OBTAINED 06/19/17 12:13 Stool Escherichia coli 0157 Culture - Final NO GROWTH OF E COLI 0157 OBTAINED 06/19/17 12:13 Stool Clostridium difficile Antigen (JODIE) - Final 06/19/17 12:13 Stool Clostridium difficile Toxin Assay - Final 06/19/17 12:13 Stool Norovirus GI - Preliminary 06/19/17 12:13 Stool Norovirus GII - Preliminary 06/17/17 21:20 Urine - Urine - Catheterized Urine Culture - Final NO GROWTH OBTAINED 06/18/17 06:00 Urine For Antigen Detection Legionella Antigen - Final 06/18/17 06:00 Urine For Antigen Detection Streptococcus pneumoniae Antigen (M - Final 06/17/17 21:09 Nasopharyngeal Swab Influenza Types A,B Antigen (JODIE) - Final 06/17/17 21:09 Nasopharyngeal Swab - Final Imaging: CXR 06/17 - Imaging reveals a large heart, unfolded aorta, congestive changes and possible retrocardiac infiltrate. Follow-up recommended. CXR 06/17 - Since 06/17/2017 2022 hours again is a large heart with unfolded aorta and congestive changes. There may be a left base infiltrate. Follow-up recommended. US abdomen 06/17 - IMPRESSION: Limited study with no definite evidence of acute pathology. Ab/Pelvis CT - IMPRESSION: 1. Cardiomegaly, bibasilar atelectasis and trace pleural effusions. 2. No evidence of acute pathology within the abdomen or pelvis. Please see above discussion. EKG 06/17 - Rate 117, Sinus Tach, LVH, LAD, QTC 475, LAF block EKG 06/19 - Rate 73, Sinus w/ 1st degree block, QTC 453, LAF block, LAD, no ST/ TW changes ECHO 06/19 - EF 53%; LV function mildly reduced, normal size; Biatrial dilatation ; Trace pulm valve regurg; trace TR CXR 06/19 - Cardiomegaly w/ mild congestion Renal U/s 06/20 - BL renal cysts. No evidence of hydro or obstructive uropathy Consults: Renal: Seen by Dr. Rodriguez ID: Seen by Dr. Mckeon Cardiology: Seen by [facility] COURSE: Prehospital course: pt is a 76 year old male with a PMH of colon cancer, HDL, HTN, CAD, s/p 2 stents ,CKD stage 4, [place] on BiPap at night, CVA x 2 who presented to the hospital with AMS and increased SOB for the pas 2 days. The pt is lethargic and history was taken partially from him and his that was present at bedside. They are visiting from [place] for . She noticed that for the past 2 days he is more lethargic, started complaining of SOB and weakness. Yesterday he had several non bloody, non bilious episodes of vomiting. He was found to have fever of 102 in ED. He had chills at home and took Tylenol PM and Benadryl before coming to the hospital.The pt states that over past several weeks he was more SOB and had occasional chest pains. He is following psychiatric aide and labeling machine operator in [place]. He denies abdominal pain, palpitation, N/V, diarrhea, vomiting, cough. Hospital course: Date of Admission:06/18/17 Date of Discharge: 06/21/17 Pt is medically stable and cleared for discharge with outpt f/u with psychiatric aide, labeling machine operator and PCP back home in [place]. Pt is medically cleared to travel per cardiology recommendations. Discharge Summary Reason For Visit: PNEUMONIA Condition: Fair - Instructions Diet, Activity, Other Instructions: During your stay at [facility], you were treated for a suspected pneumonia and congestive heart failure. You were also treated for elevation in your cardiac enzymes, which can sometimes signal a heart attack, however after full evaluation from our cardiology team, this was ruled out. Medications: The following medications were added to your medication regimen. Please take them as directed below. Coreg 25mg, one pill by mouth twice a day Please stop taking taking the following medications until you have seen your primary medical doctor: Normodyne 300mg twice a day Please continue to take all other home medications as previously directed. Follow-ups: Please follow-up with your primary care physician in 1 week. Please call their office to schedule an appointment. Please follow-up with your psychiatric aide and labeling machine operator in 1-2 weeks. Please call their office to schedule an appointment. You may require further testing with stress test or cardiac cath During your stay, you received a CT scan of your abdomen and pelvic showing a possible small blockage of your ureter near the bladder. Please bring this to the attention of your labeling machine operator for further management and treatment. Diet/exercise: Please increase your fluid intake as much as possible when taking your diuretic medication, per our nephrology team. Please limit your daily sodium intake to <2g/day. Please abide by a low-fat, low salt diet, high in fruits and vegetables. Please use a rolling walker when ambulating at home. Please return to the hospital if you experience any of the following symptoms: - Worsening or persistent chest pain or tightness - Inability to catch your breath - Persistent diarrhea - Worsening, productive cough - Persistent fevers or chills - Any new or concerning symptoms Disposition: HOME - Home Medications Comprehensive Discharge Medication List: Ambulatory Orders Allopurinol [Zyloprim -] 100 mg PO DAILY 06/18/17 Aspirin [ASA -] 81 mg PO DAILY 06/18/17 Bumetanide 1 mg PO Q2D 06/18/17 Cholecalciferol (Vitamin D3) [Vitamin D -] 400 unit PO DAILY 06/18/17 Cyanocobalamin (Vitamin B-12) [Vitamin B-12] 1,000 mcg PO DAILY 06/18/17 Hydralazine HCl 80 mg PO BID 06/18/17 Insulin Aspart [Novolog Flexpen] 100 unit SQ AC 06/18/17 Insulin Detemir [Levemir Flextouch] 30 unit SQ HS 06/18/17 Ubidecarenone [Coq-10] 30 mg PO HS 06/18/17 Carvedilol [Coreg -] 25 mg PO BID #60 tablet 06/21/17 Clopidogrel Bisulfate [Plavix] 75 mg PO HS #7 tablet 06/21/17 Isosorbide Mononitrate [Imdur -] 60 mg PO DAILY #7 tab.sr.24h 06/21/17 Metolazone 2.5 mg PO DAILY #7 tablet 06/21/17 Minoxidil 5 mg PO BID #14 tablet 06/21/17 Rosuvastatin Calcium [Crestor] 20 mg PO DAILY #7 tablet 06/21/17
== END 2017-06-21 14:15 | disposition home or self-care (01) | DRG 871 ==
LOC: JER 19:12 → JERBED 06-18 02:27 → J6S 06-18 03:37 → J8W 06-18 11:32 → J4W 06-19 16:30
PROVIDERS: ADMIT Internal Medicine; ATTEND Internal Medicine
DX: A41.9 Sepsis, unspecified organism (principal); J18.9 Pneumonia, unspecified organism; E87.0 Hyperosmolality and hypernatremia; J98.11 Atelectasis; J90 Pleural effusion, not elsewhere classified; N18.4 Chronic kidney disease, stage 4 (severe); N17.9 Acute kidney failure, unspecified; I13.0 Hypertensive heart and chronic kidney disease with heart failure and stage 1 through stage 4 chronic kidney disease, or unspecified chronic kidney disease; I50.20 Unspecified systolic (congestive) heart failure; I25.10 Atherosclerotic heart disease of native coronary artery without angina pectoris; G47.33 Obstructive sleep apnea (adult) (pediatric); R11.2 Nausea with vomiting, unspecified; K52.9 Noninfective gastroenteritis and colitis, unspecified; N28.1 Cyst of kidney, acquired; E78.5 Hyperlipidemia, unspecified; I25.2 Old myocardial infarction; E11.22 Type 2 diabetes mellitus with diabetic chronic kidney disease; I69.322 Dysarthria following cerebral infarction; Z79.4 Long term (current) use of insulin; Z85.038 Personal history of other malignant neoplasm of large intestine; Z95.5 Presence of coronary angioplasty implant and graft
CPT/HCPCS: 36415; 71045-TC-FY; 74176-TC; 76705-TC; 76775-TC; 80048; 80053; 80061; 81003; 81015; 82272; 82550; 82553; 82570; 82803; 82962; 83036; 83605; 83690; 83721; 83735; 83880; 84100; 84156; 84300; 84484; 84540; 85025; 85027; 85610; 85730; 87040; 87045; 87046; 87086; 87324; 87449; 87798; 87804; 87899; 93005; 93010; 93306-TC; 97116-GP; 97161-GP; 99285-25; J0131; J1644; J7030